=== PATIENT | male | born 1935 | race Caucasian/White ===

== ENCOUNTER 2017-02-13 18:00 | Emergency (ER) | payer OTHER, MEDICARE, MEDICAID ==
[~2017-02-13] VITALS: Ht 175.3 cm; Wt 72.6 kg
--- NOTE | 2017-02-13 18:09 | ED General ---
General Stated Complaint: SHIVERING Exam Limitations: No Limitations History of Present Illness Time Seen by Provider: 18:07 Initial Comments To ER with reports of shivering. Temperature is 103.4 upon arrival to ER with a heart rate of 140. He arrives per EMS from [facility] in [place]. Primary care is [facility]. He is currently on hospice for colon cancer. He is with [facility] and the hospice nurse is present as are his 2 adult children. Adult son states that he is still a full code and "will do whatever we have to do to get him going". Patient has colon cancer which she has not sought treatment for at the advice of his physician who stated he wouldn 't make it through colon cancer treatment. Timing/Duration: 1-2 Days Severity: Moderate Associated Systoms: Fever/Chills Allergies and Home Medications Allergies Coded Allergies: No Known Drug Allergies (Unverified , 02/13/17) Home Medications Unable to Obtain Active Prescriptions or Reported Meds Constitutional: see HPI EENTM: see HPI Respiratory: no symptoms reported Cardiovascular: no symptoms reported Genitourinary: no symptoms reported Musculoskeletal: no symptoms reported Skin: no symptoms reported Psychiatric/Neurological: No Symptoms Reported Hematologic/Lymphatic: No Symptoms Reported Immunological/Allergic: no symptoms reported Past Qdyoafn-Wodtit-Xsurkz Hx Patient Social History Recent Foreign Travel: No Contact w/Someone Who Travel: No Physical Exam Vital Signs Vital Sign - Last 12Hours 02/13/17 02/13/17 18:05 22:02 Temp 103.4 Pulse 130 Resp 26 B/P (MAP) 119/80 Pulse Ox 96 O2 Delivery Room Air O2 Flow Rate 2.00 Capillary Refill : General Appearance: WD/WN, Chronically ill, Moderate Distress, Other (cachectic ) Eyes: Bilateral Eye EOMI, Bilateral Eye Normal Inspection, Bilateral Eye PERRL HEENT: PERRL/EOMI, TMs Normal Neck: Full Range of Motion, Normal Inspection Respiratory: Normal Breath Sounds, No Accessory Muscle Use, No Respiratory Distress Cardiovascular: Normal Peripheral Pulses, Tachycardia Gastrointestinal: Non Tender, Soft Extremity: Normal Capillary Refill, Normal Inspection Neurologic/Psychiatric: Other (moans and mumbles incoherently but no meaningful verbal response. Does not open his eyes.) Skin: Normal Color, Warm/Dry Focused Exam Lactic Acid Level Progress/Results/Core Measures Results/Orders Lab Results My Orders Orders - TAVO SANTOYO APRN Iv Infusion <= First Hr Ed (02/13/17 ) Medications Given in ED Vital Signs/I&O Diagnostic Imaging Diagonstic Imaging: Xray Comments NAME: KIKE CASTELLANO REC#: [id number] PT STATUS: REG ER : 1935 PHYSICIAN: TAVO SANTOYO APRN ADMIT DATE: 02/13/17/ER Draft Date of Exam:02/13/17 CHEST 1 VIEW, AP/PA ONLY INDICATION: Fever. EXAMINATION: Portable chest was obtained. FINDINGS: Normal heart size and vascularity. The lungs are clear. There is no effusion or pneumothorax. There are changes of prior median sternotomy. There are degenerative changes of the right shoulder joint. IMPRESSION: No acute abnormality is seen. Dictated on workstation # [id number] Dict: 02/13/171837 Trans: 02/13/171854 [facility] [id number] Interpreted by: JAYA CASH MD Electronically signed by: NAME: KIKE CASTELLANO REC#: [id number] PT STATUS: REG ER : 1935 PHYSICIAN: TAVO SANTOYO APRN ADMIT DATE: 02/13/17/ER Draft Date of Exam:02/13/17 CT ABDOMEN/PELVIS WO PROCEDURE: CT abdomen and pelvis without contrast. TECHNIQUE: Multiple contiguous axial images were obtained through the abdomen and pelvis without the use of intravenous contrast. INDICATION: Fever. Pain. FINDINGS: The lung bases are clear. The gallbladder is absent. The liver and bile ducts are normal. The spleen is mildly prominent. The pancreas and adrenals are normal. The kidneys, ureters and bladder are normal. There is an abnormal appearance to the ascending colon just proximal to the hepatic flexure with circumferential thickening and pericolonic edema. This was likely due to focal inflammation and diverticulitis but neoplasm needs to be excluded. There is no obstruction or perforation at this time. There is no abscess present. There is no adenopathy. IMPRESSION: There is an abnormal appearance to the ascending colon which may be secondary to an inflammatory or neoplastic process. Recommend followup for clearing and/or endoscopy for further evaluation. Dictated on workstation # [id number] Dict: 02/13/172002 Trans: 02/13/172006 [facility] [id number] Interpreted by: JAYA CASH MD Electronically signed by: Departure Communication Progress Notes 1817-I did discuss with the patient's adult son that we should reconsider the full CODE STATUS. He states "no, that's what he said he wanted and I followed by mother's wishes when she passed and I'll follow his too". I did discuss with him the violent nature of CPR and the futility of this but he insists on continuing full CODE STATUS. 2021- I did discuss the case with Dr. Nettles. She feels she would be unable to provide this gentleman with care he needs given the aggressive treatment the family would like to pursue. I will discuss treatment plan with family. 2024- family will be revoking hospice ([facility]) and would like the patient transferred to [facility]. 2039-Dr. Anderson was most gracious and accepted the patient to the hospitalist service. ABG is pending. Patient has had 2 L of IV fluids, 4.5 g IV Zosyn. Heart rate down to 100 sinus, temperature down to 101, blood pressure 99/60. Impression Impression: Primary Impression: Severe sepsis Additional Impression: Colon cancer Disposition: 02 XFER SHT-TRM HOSP Condition: Critical Decision to Admit Reason: Admit from ER (General) Decision to Admit/Date: Feb 13, 2017 Time/Decision to Admit Time: 19:10 Departure-Patient Inst. Referrals: NO,LOCAL PHYSICIAN (PCP/Family) Primary Care Physician Scripts Unable to Obtain Active Prescriptions or Reported Meds TAVO SANTOYO APRN Feb 13, 2017 18:09
[2017-02-13] MEDS ORDERED: ACETAMINOPHEN 500 MG TAB (TYLENOL) PO ONE (18:15)
[2017-02-13] MEDS ORDERED: NS IV 1000 ML 1,000 ML IV SCH ×2 (18:15→19:00)
[2017-02-13 18:30] LABS: BASOPHILS % (AUTO) 0 % (0-10); EOSINOPHILS % (AUTO) 0 % (0-10); LYMPHOCYTES # (AUTO) 0.3 X 10^3 (1.0-4.0); LYMPHOCYTES % (AUTO) 3 % (12-44); MEAN CORPUSCULAR HEMOGLOBIN 25 PG (25-34); MEAN CORPUSCULAR HGB CONC 33 G/DL (32-36); MEAN CORPUSCULAR VOLUME 77 FL (80-99); MEAN PLATELET VOLUME 10.5 FL (7.4-10.4); MONOCYTES # (AUTO) 0.6 X 10^3 (0.0-1.0); MONOCYTES % (AUTO) 6 % (0-12); NEUTROPHILS # (AUTO) 10.2 X 10^3 (1.8-7.8); NEUTROPHILS % (AUTO) 91 % (42-75); PLATELET COUNT 180 10^3/uL (130-400); RED BLOOD COUNT 5.41 10^6/uL (4.35-5.85); RED CELL DISTRIBUTION WIDTH 16.6 % (10.0-14.5); WHITE BLOOD COUNT 11.1 10^3/uL (4.3-11.0)
[2017-02-13 18:31] LABS: KETONES,URINE NEGATIVE (NEGATIVE); LEUKOCYTE ESTERASE ,URINE NEGATIVE (NEGATIVE); NITRITE,URINE NEGATIVE (NEGATIVE); PH,URINE 5 (5-9); PROTEIN,URINE 1+ (NEGATIVE); UROBILINOGEN,URINE NORMAL (NORMAL)
[2017-02-13 18:43] LABS: BILIRUBIN,URINE 1+ (NEGATIVE)
[2017-02-13 18:46] LABS: ALBUMIN 3.6 GM/DL (3.2-4.5); BILIRUBIN,TOTAL 1.3 MG/DL (0.1-1.0); CALCIUM 9.5 MG/DL (8.5-10.1); CREATININE SERUM 1.46 MG/DL (0.60-1.30); POTASSIUM 3.7 MMOL/L (3.6-5.0); TOTAL PROTEIN 7.6 GM/DL (6.4-8.2)
[2017-02-13 18:47] LABS: BAND NEUTROPHILS 10 %; BASOPHILS % (MANUAL) 1 %; EOSINOPHILS % (MANUAL) 0 %; LYMPHOCYTES % (MANUAL) 3 %; NEUTROPHILS % (MANUAL) 84 %
[2017-02-13] MEDS ORDERED: ACETAMINOPHEN 650 MG SUPP (TYLENOL) ONE (18:52)
--- NOTE | 2017-02-13 18:55 | Diagnostic Imaging Report ---
INDICATION: Fever. EXAMINATION: Portable chest was obtained. FINDINGS: Normal heart size and vascularity. The lungs are clear. There is no effusion or pneumothorax. There are changes of prior median sternotomy. There are degenerative changes of the right shoulder joint. IMPRESSION: No acute abnormality is seen. Dictated by: Dictated on workstation # [id number]
[2017-02-13] MEDS ORDERED: ACETAMINOPHEN 650 MG SUPP (TYLENOL) PR ONE (19:00)
[2017-02-13] MEDS ORDERED: NS (IVPB) 250 ML IV ONE (19:15)
[2017-02-13] MEDS ORDERED: PIPERACILLIN SODIUM/TAZOBACTAM 4.5 GM in NS (IVPB) 100 ML IV ONE (19:15)
--- NOTE | 2017-02-13 20:08 | Diagnostic Imaging Report ---
PROCEDURE: CT abdomen and pelvis without contrast. TECHNIQUE: Multiple contiguous axial images were obtained through the abdomen and pelvis without the use of intravenous contrast. INDICATION: Fever. Pain. FINDINGS: The lung bases are clear. The gallbladder is absent. The liver and bile ducts are normal. The spleen is mildly prominent. The pancreas and adrenals are normal. The kidneys, ureters and bladder are normal. There is an abnormal appearance to the ascending colon just proximal to the hepatic flexure with circumferential thickening and pericolonic edema. This was likely due to focal inflammation and diverticulitis but neoplasm needs to be excluded. There is no obstruction or perforation at this time. There is no abscess present. There is no adenopathy. IMPRESSION: There is an abnormal appearance to the ascending colon which may be secondary to an inflammatory or neoplastic process. Recommend followup for clearing and/or endoscopy for further evaluation. Dictated by: Dictated on workstation # [id number]
[2017-02-13 21:22] LABS: ABG HCO3 25 MMOL/L (23-27); ABG OXYGEN SATURATION 91 % (94-100); ABG PCO2 43 MMHG (35-45); ABG PH 7.39 (7.37-7.43); ABG PO2 55 MMHG (79-93); ABG TCO2 26.6 MMOL/L (21.0-31.0); ALLENS TEST YES-POS
[2017-02-13] MEDS ORDERED: NS IV 1000 ML 1,000 ML ONE (21:56)
[2017-02-13 22:02] VITALS: BP 110/59
== END 2017-02-13 22:02 | disposition short-term general hospital (02) ==
LOC: ER 18:03
DX: A41.9 Sepsis, unspecified organism (principal); R65.20 Severe sepsis without septic shock; C18.9 Malignant neoplasm of colon, unspecified
CPT/HCPCS: 36415; 71010; 74176; 80053; 81000; 82805; 83605; 85007; 85025; 85027; 87040; 96365; 99285

== ENCOUNTER 2017-03-29 03:34 | Inpatient (IN) | payer MEDICARE, MEDICAID ==
[2017-03-29] VITALS (15 sets, daily range): BP systolic 92–122; BP diastolic 46–65
[~2017-03-29] VITALS: Ht 170.2 cm; Wt 67.6 kg
[2017-03-29] MEDS ORDERED: NS IV 1000 ML 1,000 ML IV ONE ×2 (03:47→04:38)
--- NOTE | 2017-03-29 03:56 | ED Respiratory ---
General Stated Complaint: COUGHING UP YELLOW PHLEGM Source: patient, EMS, [facility] Exam Limitations: clinical condition History of Present Illness Time seen by provider: 03:45 Initial Comments Patient presents to ER by EMS with a chief complaint of needing to be suctioned multiple times and a lot of coughing. The patient is a resident of [facility] for the past 2 days where he just got there after a 2 week stay in the ICU and hospital at [place], [place] where he was intubated for a time for respiratory issues. Apparently he was on hospice prior to that but was rescinded for inpatient care. He is not on hospice now and is full code. The patient gives no history. He has a feeding tube, Dey catheter and multiple wounds that are dressed as well as a fentanyl patch on the front of his chest per EMS. No IV fluids were started since he was just brought across the road. Allergies and Home Medications Allergies Coded Allergies: No Known Drug Allergies (Unverified , 02/13/17) Home Medications Amlodipine Besylate 5 Mg Tablet, (Reported) Citalopram Hydrobromide 20 Mg Tablet, (Reported) Fentanyl 1 Each Patch.td72, (Reported) Hydrocodone/Acetaminophen 1 Each Tablet, (Reported) Levothyroxine Sodium 175 Mcg Tablet, (Reported) Metoprolol Tartrate 25 Mg Tablet, 25 MG PO BID, (Reported) Ondansetron 4 Mg Tab.rapdis, (Reported) Ranitidine HCl 150 Mg Tablet, (Reported) Rosuvastatin Calcium 40 Mg Tablet, (Reported) Constitutional: see HPI (patient is obtunded and unable to give any meaningful review of systems or answer questions.) Physical Exam Vital Signs Vital Sign - Last 12Hours 03/29/17 03:34 Temp 98.1 Pulse 97 Resp 15 B/P (MAP) 129/79 Pulse Ox 92 O2 Delivery Room Air Capillary Refill : General Appearance: mild distress, cachetic Eyes: Bilateral Eye Normal Inspection, Bilateral Eye PERRL (2 mm bilateral with only scant reaction to light.), Bilateral Eye EOMI HEENT: other (extremely dry mucous membranes with thick phlegm in the back of his oropharynx. Ear canals are clear with mucoid effusions and some retraction.) Neck: non-tender, limited range of motion Respiratory: chest non-tender, lungs clear, no respiratory distress, no accessory muscle use, other (pectus excavatum) Cardiovascular: normal peripheral pulses, regular rate, rhythm, other (left arm edema) Gastrointestinal: normal bowel sounds, non tender, soft Extremities: non-tender, no calf tenderness Neurologic/Psychiatric: alert, aphasia, disoriented x 3, other (bedbound) Skin: other (multiple dressed pressure ulcers and maceration of the back along the spine. Stage I pressure ulcer from thoracic spine down to sacrum with dressings. Dressings on scrotum, ischial tuberosities, heels) Focused Exam Evaluation Lactate Level Laboratory Tests 03/29/17 03:50: Lactic Acid Level 2.93*H Lactic Acid Level Laboratory Tests Test 03/29/17 03:50 Lactic Acid Level 2.93 MMOL/L (0.50-2.00) *H Progress/Results/Core Measures Results/Orders Lab Results Laboratory Tests Test 03/29/17 03:50 03/29/17 03:56 Range/Units White Blood Count 6.8 4.3-11.0 10^3/uL Red Blood Count 3.58 L 4.35-5.85 10^6/uL Hemoglobin 9.8 L 13.3-17.7 G/DL Hematocrit 32 L 40-54 % Mean Corpuscular Volume 88 80-99 FL Mean Corpuscular Hemoglobin 27 25-34 PG Mean Corpuscular Hemoglobin Concent 31 L 32-36 G/DL Red Cell Distribution Width 23.2 H 10.0-14.5 % Platelet Count 103 L 130-400 10^3/uL Mean Platelet Volume 12.4 H 7.4-10.4 FL Neutrophils (%) (Auto) 79 H 42-75 % Lymphocytes (%) (Auto) 14 12-44 % Monocytes (%) (Auto) 5 0-12 % Eosinophils (%) (Auto) 2 0-10 % Basophils (%) (Auto) 0 0-10 % Neutrophils # (Auto) 5.4 1.8-7.8 X 10^3 Lymphocytes # (Auto) 1.0 1.0-4.0 X 10^3 Monocytes # (Auto) 0.4 0.0-1.0 X 10^3 Eosinophils # (Auto) 0.1 0.0-0.3 10^3/uL Basophils # (Auto) 0.0 0.0-0.1 10^3/uL Prothrombin Time 14.4 12.2-14.7 SEC INR Comment 1.1 0.8-1.4 Activated Partial Thromboplast Time 28 24-35 SEC Sodium Level 148 H 135-145 MMOL/L Potassium Level 4.1 3.6-5.0 MMOL/L Chloride Level 111 H 98-107 MMOL/L Carbon Dioxide Level 23 21-32 MMOL/L Anion Gap 14 5-14 MMOL/L Blood Urea Nitrogen 44 H 7-18 MG/DL Creatinine 1.13 0.60-1.30 MG/DL Estimat Glomerular Filtration Rate > 60 BUN/Creatinine Ratio 39 Glucose Level 203 H 70-105 MG/DL Lactic Acid Level 2.93 *H 0.50-2.00 MMOL/L Calcium Level 8.7 8.5-10.1 MG/DL Phosphorus Level 3.2 2.3-4.7 MG/DL Magnesium Level 2.2 1.8-2.4 MG/DL Total Bilirubin 1.0 0.1-1.0 MG/DL Aspartate Amino Transf (AST/SGOT) 128 H 5-34 U/L Alanine Aminotransferase (ALT/SGPT) 101 H 0-55 U/L Alkaline Phosphatase 416 H 40-136 U/L Troponin I 1.04 *H <0.30 NG/ML Total Protein 6.3 L 6.4-8.2 GM/DL Albumin 3.1 L 3.2-4.5 GM/DL Urine Color YELLOW Urine Clarity VERY CLOUDY H Urine pH 9 5-9 Urine Specific [place] 1.015 L 1.016-1.022 Urine Protein 3+ H NEGATIVE Urine Glucose (UA) NEGATIVE NEGATIVE Urine Ketones 1+ H NEGATIVE Urine Nitrite POSITIVE H NEGATIVE Urine Bilirubin NEGATIVE NEGATIVE Urine Urobilinogen 1 NORMAL MG/DL Urine Leukocyte Esterase 3+ H NEGATIVE Urine RBC (Auto) 5+ H NEGATIVE Urine RBC TNTC H /HPF Urine WBC TNTC H /HPF Urine Crystals PRESENT H /LPF Urine Triple Phosphate Crystals LARGE H /LPF Urine Amorphous Sediment LARGE GARRISON PHOSPHATE H /LPF Urine Bacteria MODERATE H /HPF Urine Casts NONE /LPF Urine Mucus NEGATIVE /LPF Urine Culture Indicated YES My Orders Orders - MAC RODRIGUEZ Cbc With Automated Diff (03/29/17 03:47) Comprehensive Metabolic Panel (03/29/17 03:47) Lactic Acid Analyzer (03/29/17 03:47) Magnesium (03/29/17 03:47) Troponin I (03/29/17 03:47) Phosphorus (03/29/17 03:47) Chest 1 View, Ap/Pa Only (03/29/17 03:47) Blood Culture (03/29/17 03:47) Sputum Culture (03/29/17 03:47) Ua Culture If Indicated (03/29/17 03:47) Protime With Inr (03/29/17 03:47) Partial Thromboplastin Time (03/29/17 03:47) O2 (03/29/17 03:47) Saline Lock/Iv-Start (03/29/17 03:47) Saline Lock/Iv-Start (03/29/17 03:47) Vital Signs Adult Sepsis Patie Q1HR (03/29/17 03:47) Remove Rings In Anticipation O (03/29/17 03:47) Saline Lock/Iv-Start (03/29/17 03:47) Ns Iv 1000 Ml (Sodium Chloride 0.9%) (03/29/17 03:47) Albuterol/Ipra Inhalation Soln (Duoneb I (03/29/17 04:00) Svn Sm Volume Nebulizer Rt-Rfs (03/29/17 03:58) Urine Culture (03/29/17 03:56) Continuous Ekg Monitoring (03/29/17 04:38) Ekg Tracing (03/29/17 04:38) Saline Lock/Iv-Start (03/29/17 04:38) Ns Iv 1000 Ml (Sodium Chloride 0.9%) (03/29/17 04:38) Cefepime Injection (Maxipime Injection) (03/29/17 04:45) Aspirin Tablet (Aspirin Tablet) (03/29/17 05:00) Enoxaparin Injection (Lovenox Injection) (03/29/17 05:00) Metoprolol Tartrate Injection (Lopressor (03/29/17 05:00) Vancomycin Injection (Vancomycin Injecti (03/29/17 05:00) Medications Given in ED Current Medications Medications Dose Ordered Sig/Horacio Route Start Time Stop Time Status Last Admin Dose Admin Albuterol/ Ipratropium 3 ml ONCE ONCE INH 03/29/17 04:00 03/29/17 04:01 DC 03/29/17 04:10 3 ML Aspirin 325 mg ONCE ONCE GT 03/29/17 05:00 03/29/17 05:01 DC 03/29/17 05:24 325 MG Enoxaparin Sodium 70 mg ONCE ONCE SC 03/29/17 05:00 03/29/17 05:01 DC 03/29/17 05:27 70 MG Metoprolol Tartrate 2.5 mg ONCE ONCE IV 03/29/17 05:00 03/29/17 05:01 DC 03/29/17 05:29 2.5 MG Sodium Chloride 1,000 ml @ 0 mls/hr Q0M ONCE IV 03/29/17 03:47 03/29/17 03:53 DC 03/29/17 04:26 1,000 MLS/HR Sodium Chloride 1,000 ml @ 0 mls/hr Q0M ONCE IV 03/29/17 04:38 03/29/17 04:40 DC 03/29/17 05:34 1,000 MLS/HR Vital Signs/I&O Vital Sign - Last 12Hours 03/29/17 03/29/17 03:34 04:13 Temp 98.1 Pulse 97 Resp 15 B/P (MAP) 129/79 Pulse Ox 92 9 O2 Delivery Room Air Room Air Progress Note #1: Time: 03:56 Progress Note Patient has a very cachectic frail gentleman with phlegm produced upon cough. Along suctioning we got copious amounts of yellow phlegm. He is given a history per EMS that he is recently been in the hospital for pneumonia and is being treated with suctioning and breathing treatments but his med rec list from the halfway does not include any antibiotics at this time. He appears clinically dry. Progress Note #2: Time: 04:37 Progress Note Patient had a lot less upper airway sounds and rhonchus after he was deep suctioned. However after a breathing treatment his sounds are still diminished bilaterally. He looks very dry and he has an elevated lactate without any AK I. A lot of his labs are stable however his globe and has dropped off sharply in the last month by about 4 mg/dL. We'll go ahead and give him 30 mL/kg of fluids which would be 2 L to start. Because of his copious thick. Looking secretions as well as his urinalysis that looks like it could be colonized secondary to the indwelling Dey catheter it would not be unreasonable to start antibiotics. His troponin is also elevated at 1.04. We'll obtain an EKG however he is not going to be a candidate for cardiac catheterization. 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 With his recent drop in hemoglobin he will be a risky to put him on blood thinners. As far as antibiotic choice the differential includes UTI versus pneumonia. His lack of white count is noted and could be due to immunosenescence. We will presumptively treat him for sepsis with vancomycin and cefepime Progress Note #3: Time: 05:19 Progress Note No family present to discuss the case with so we will go ahead and move forward with treating the patient for potential in STEMI, pneumonia, UTI, sepsis. We'll give him put inpatient with telemetry under the care of Dr. El and Dr. Hamilton. ECG Initial ECG Impression Date: Mar 29, 2017 Initial ECG Impression Time: 04:39 Initial ECG Rate: 98 Initial ECG Rhythm: A Fib/Flutter Initial ECG Intervals: QT (491) Initial ECG Impression: Atrial Fibrillation Comment No evidence of ST elevation or depression Diagnostic Imaging Diagonstic Imaging: Xray Plain Films/CT/US/NM/MRI: chest Comments No acute cardiopulmonary processes noted. Previous sternotomy wires in place. Calcifications of the aorta. Compared to x-ray from one month ago. Reviewed: Reviewed by Me Consults Consults : Consulting Physician: DANTE HAMILTON MD FACP FAC CCDS Consults Notes 0450: Discussed the case as well as the lab findings and recent hospitalization and imaging. Discussed the drop in hemoglobin. He feels at this time Lovenox 1 mg/kg and aspirin 325 per the PEG tube would be recommended. He would like to give a slightly higher dose of metoprolol and with the patient's already on and Lopressor 2.5 mg IV times one now. He is okay if the hospitalist taking over the case wants to hold off on Lovenox for fear of an acute bleed. Departure Communication (Admissions) Time/Spoke to Admitting Phy: 05:02 Communication Sienna: Discussed the history, presentation, exam, x-ray, labs, troponin and kidney function and lactate and plan to give fluids, cefepime, vancomycin, Lovenox, aspirin, Lopressor and consultation with Dr. Hamilton, weatherstrip machine operator. He is in agreement with this plan so far and will see the patient. Impression Impression: Primary Impression: Non-STEMI (non-ST elevated myocardial infarction) Additional Impressions: Sepsis Qualified Codes: A41.9 - Sepsis, unspecified organism Pneumonia Qualified Codes: J18.9 - Pneumonia, unspecified organism UTI (urinary tract infection) Qualified Codes: N30.01 - Acute cystitis with hematuria Colon cancer Qualified Codes: C18.9 - Malignant neoplasm of colon, unspecified Pressure ulcer Qualified Codes: L89.109 - Pressure ulcer of unspecified part of back, unspecified stage Atrial fibrillation and flutter Thrombocytopenia Acute hypernatremia Elevated transaminase level Hypoalbuminemia Disposition: ADMITTED INPATIENT Condition: Stable Admissions Decision to Admit Reason: Admit from ER (General) Decision to Admit/Date: Mar 29, 2017 Time/Decision to Admit Time: 05:19 Departure-Patient Inst. Referrals: NO,LOCAL PHYSICIAN (PCP/Family) Primary Care Physician Copy Copies To 1: MIGUEL PENN DO Copies To 2: DANTE HAMILTON MD FACP [facility]ACC [facility] MAC RODRIGUEZ Mar 29, 2017 03:56
[2017-03-29] MEDS ORDERED: RT-ALBUTEROL/IPRATROPIUM 3 ML (DUONEB) VIAL INH ONE (04:00)
[2017-03-29 04:04] LABS: BILIRUBIN,URINE NEGATIVE (NEGATIVE); KETONES,URINE 1+ (NEGATIVE); LEUKOCYTE ESTERASE ,URINE 3+ (NEGATIVE); NITRITE,URINE POSITIVE (NEGATIVE); PH,URINE 9 (5-9); PROTEIN,URINE 3+ (NEGATIVE); UROBILINOGEN,URINE 1 MG/DL (NORMAL)
[2017-03-29 04:06] LABS: BASOPHILS % (AUTO) 0 % (0-10); EOSINOPHILS # (AUTO) 0.1 10^3/uL (0.0-0.3); EOSINOPHILS % (AUTO) 2 % (0-10); LYMPHOCYTES % (AUTO) 14 % (12-44); MEAN CORPUSCULAR HEMOGLOBIN 27 PG (25-34); MEAN CORPUSCULAR HGB CONC 31 G/DL (32-36); MEAN CORPUSCULAR VOLUME 88 FL (80-99); MEAN PLATELET VOLUME 12.4 FL (7.4-10.4); MONOCYTES # (AUTO) 0.4 X 10^3 (0.0-1.0); MONOCYTES % (AUTO) 5 % (0-12); NEUTROPHILS # (AUTO) 5.4 X 10^3 (1.8-7.8); NEUTROPHILS % (AUTO) 79 % (42-75); PLATELET COUNT 103 10^3/uL (130-400); RED BLOOD COUNT 3.58 10^6/uL (4.35-5.85); RED CELL DISTRIBUTION WIDTH 23.2 % (10.0-14.5); WHITE BLOOD COUNT 6.8 10^3/uL (4.3-11.0)
[2017-03-29 04:11] LABS: TRIPLE PHOSPHATE CRYSTAL,UR LARGE /LPF; WBC,URINE TNTC /HPF
[2017-03-29 04:12] LABS: INR 1.1 (0.8-1.4); PROTHROMBIN TIME PATIENT 14.4 SEC (12.2-14.7)
[2017-03-29 04:23] LABS: ALANINE AMINOTRANSFERASE 101 U/L (0-55); ALBUMIN 3.1 GM/DL (3.2-4.5); ANION GAP 14 MMOL/L (5-14); ASPARTATE AMINO TRANSFERASE 128 U/L (5-34); BLOOD UREA NITROGEN 44 MG/DL (7-18); BUN/CREATININE RATIO 39; CALCIUM 8.7 MG/DL (8.5-10.1); CARBON DIOXIDE 23 MMOL/L (21-32); CHLORIDE 111 MMOL/L (98-107); CREATININE SERUM 1.13 MG/DL (0.60-1.30); GFR ESTIMATED > 60; GLUCOSE 203 MG/DL (70-105); MAGNESIUM 2.2 MG/DL (1.8-2.4); PHOSPHORUS 3.2 MG/DL (2.3-4.7); POTASSIUM 4.1 MMOL/L (3.6-5.0); SODIUM 148 MMOL/L (135-145); TOTAL PROTEIN 6.3 GM/DL (6.4-8.2)
[2017-03-29 04:36] LABS: TROPONIN I 1.04 NG/ML (<0.30)
[2017-03-29] MEDS ORDERED: CEFEPIME INJECTION 2,000 MG in NS (IVPB) 50 ML IV STA (04:45)
[2017-03-29] MEDS ORDERED: ASPIRIN 325 MG (5 GR) TABLET GT ONE (05:00)
[2017-03-29] MEDS ORDERED: meTOprolol 5 MG/5 ML (LOPRESSOR) VIAL IV ONE (05:00)
[2017-03-29] MEDS ORDERED: ENOXAPARIN 80 MG/0.8 ML (LOVENOX) SYR SC ONE (05:00)
[2017-03-29] MEDS ORDERED: VANCOMYCIN INJECTION 1,000 MG in NS (IVPB) 250 ML IV ONE (05:00)
[2017-03-29] MEDS ORDERED: ONDA4TAB11 PEG (05:18)
[2017-03-29] MEDS ORDERED: METO-333 PEG (05:18)
[2017-03-29] MEDS ORDERED: CITA20TA7 PEG (05:18)
[2017-03-29] MEDS ORDERED: LEVO175T5 PEG (05:18)
[2017-03-29] MEDS ORDERED: HYDR-3812 PEG (05:18)
[2017-03-29] MEDS ORDERED: ROSU40TA20 PEG (05:18)
[2017-03-29] MEDS ORDERED: RANI150T11 PEG (05:18)
[2017-03-29] MEDS ORDERED: AMLO5TAB2 PEG (05:18)
[2017-03-29] MEDS ORDERED: FENT1PAT9 TD (05:18)
--- OUTSIDE RECORDS SUMMARY | 2017-03-29 05:32 | XMS REPORT | CCD ---
Author Author MARIA ESTHER MCCLURE Organization Unknown Address [address] [facility] [address] [place], [place] [id number] Care Team Providers Care Wet Press Tender Name Role Phone ABRAMS, ERIC DO Attphys ABRAMS, ERIC DO Prisurg Vital Signs Unknown or Not Available. Allergies Allergy Code Allergy Type Reaction Status SHELLFISH 0 Food allergy Active Procedures Procedure Code Procedure Type Date CX CHEST [address] 10/12/2014 CULTURE URINE 390448617 SNOMED CT 10/12/2014 ^CBC W/AUTO DIFF 6380127 SNOMED CT 10/12/2014 URINALYSIS C&S IF IND 913420370 SNOMED CT 10/12/2014 COMPREHENSIVE METABOLIC PANEL 423477089 SNOMED CT 2014 CBC W/ AUTO DIFF (RFLX MAN DIFF IF IND) 6453698 SNOMED CT 10/12/2014 History of Immunizations Immunization Code Date influenza, split (incl. purified surface antigen) 15 06/05/1997 influenza, split (incl. purified surface antigen) 15 06/04/1999 influenza, split (incl. purified surface antigen) 15 04/25/2004 influenza, split (incl. purified surface antigen) 15 05/15/2005 Problems Problem Code Start Date Resolved Date Status PYELONEPHRITIS, ACUTE 33799313 07/27/2011 Active FRACTURE OF RIBS, TWO 9826104 07/27/2011 Active ACUTE RIGHT FLANK PAIN 099234225 07/27/2011 Active FREQUENT FALLS 215292023 07/27/2011 Active Results COMPREHENSIVE METABOLIC PANEL - Collect Date/Time: 10/12/2014 13:26 Test Name Code Test Result Test Units Test Ref Range GLUCOSE 2345-7 219 MG/DL L=70 H=100 SODIUM 2951-2 141 MEQ/L L=135 H=148 POTASSIUM 2823-3 3.4 MEQ/L L=3.5 H=5.3 CHLORIDE 2075-0 103 MEQ/L L=96 H=110 CO2 2028-9 27 MEQ/L L=22 H=29 BUN 3094-0 17 MG/DL L=8 H=22 CREATININE 2160-0 1.8 MG/DL L=0.6 H=1.6 SGOT/AST 1920-8 52 IU/L L=10 H=40 SGPT/ALT 1742-6 46 IU/L L=8 H=54 ALK PHOS 6768-6 207 IU/L L=35 H=115 TOTAL PROTEIN 2885-2 6.1 G/DL L=5.5 H=8.5 ALBUMIN 1751-7 3.7 G/DL L=3.1 H=5.4 TOTAL BILI 1975-2 2.0 MG/DL L=0.0 H=1.5 CALCIUM 30516-4 8.6 MG/DL L=8.2 H=10.6 AGE 78 yrs GFR NonAA 37 GFR AA 45 eGFR 37 mL/min/1.7 eGFR AA* 45 mL/min/1.7 CBC W/ AUTO DIFF (RFLX MAN DIFF IF IND) - Collect Date/Time: 10/12/2014 13:26 Test Name Code Test Result Test Units Test Ref Range WBC 69325-0 4.3 TH/CMM L=4.5 H=10.8 RBC 789-8 4.48 ML/CMM L=4.70 H=6.10 HGB 718-7 13.4 G/DL L=14.0 H=18.0 HCT 4544-3 41.5 % L=42.0 H=52.0 MCV 93 FL L=81 H=99 MCH 29.9 PG L=27.0 H=33.0 MCHC 32.3 G/DL L=31.0 H=36.0 RDW SD 58 FL L=36 H=50 RDW CV 16.9 % L=0.0 H=14.8 MPV 11.2 FL L=9.3 H=12.5 PLT 777-3 64 TH/CMM L=130 H=440 NRBC# 0.00 TH/CMM L=0.00 H=0.00 NRBC% 0.0 /100WBC L=0.0 H=2.0 %NEUT 77.4 % %LYMP 16.8 % %MONO 3.5 % %EOS 2.1 % %BASO 0.2 % #NEUT 3.31 TH/CMM L=2.10 H=8.20 #LYMP 0.72 TH/CMM L=0.90 H=5.20 #MONO 0.15 TH/CMM L=0.16 H=1.00 #EOS 0.09 TH/CMM L=0.00 H=0.80 #BASO 0.01 TH/CMM L=0.00 H=0.20 PLTS PLTS CHECKD N/A MANUAL DIFF NOT IND N/A URINALYSIS C&S IF IND - Collect Date/Time: 10/12/2014 14:00 Test Name Code Test Result Test Units Test Ref Range COLOR YELLOW N/A NL: YELLOW APPEARANCE CLEAR N/A NL: CLEAR SPEC GRAV >=1.030 N/A NL: 1.002 - 1.022 pH 5.5 N/A NL: 5 - 9 PROTEIN TRACE N/A NL: NEGATIVE mg/dl GLUCOSE NEGATIVE N/A NL: NEGATIVE mg/dl KETONE NEGATIVE N/A NL: NEGATIVE mg/dl BILIRUBIN NEGATIVE N/A NL: NEGATIVE BLOOD NEGATIVE N/A NL: NEGATIVE NITRITE NEGATIVE N/A NL: NEGATIVE LEUK SCREEN TRACE N/A NL: NEGATIVE WBC/HPF 5-10 N/A NL: NEGATIVE RBC/HPF RARE N/A NL: NEGATIVE CASTS/LPF NEGATIVE N/A NL: NEGATIVE CRYSTALS NEGATIVE N/A NL: NEGATIVE MUCOUS THRDS FEW N/A NL: NEGATIVE BACTERIA FEW N/A NL: NEGATIVE EPITH CELLS FEW SQUAMOUS N/A NL: NEGATIVE TRICHOMONAS NEGATIVE N/A NL: NEGATIVE YEAST NEGATIVE N/A NL: NEGATIVE CULT SET UP? YES N/A Active Medications Unknown or Not Available. Medications Administered During Visit Unknown or Not Available. Encounters Encounter Diagnosis Diagnosis Code Start Date OTHER PANCYTOPENIA 20365 10/12/2014 Social History Smoking Status Code Start Date End Date Never smoker [id number] Patient Decision Aids Unknown or Not Available. Discharge Instructions You were admitted to [facility] on 10/12/2014 with a principal diagnosis of OTHER PANCYTOPENIA. You were discharged from [facility] on 10/12/2014. Should you have any questions prior to discharge, please contact a member of your healthcare team. If you have left the hospital and have any questions, please contact your primary care physician. Chief Complaint and Reason For Visit Chief Complaint Date of Onset GEN WEAKNESS Function Status Unknown or Not Available. Referral/Transition of Care Unknown or Not Available.
--- NOTE | 2017-03-29 06:19 | Diagnostic Imaging Report ---
INDICATION: Congestion. COMPARISON: 02/13/2017. FINDINGS: Development of small left pleural effusion and left basilar pulmonary opacities. No pneumothorax. Cardiomegaly with changes of CABG. Right lung is clear. IMPRESSION: 1. Development of small left pleural effusion and left basilar opacities which could relate to pneumonia, aspiration or other inflammatory process depending on the clinical scenario. Dictated by: Dictated on workstation # [id number]
[2017-03-29] MEDS ORDERED: fentaNYL PATCH 50 MCG (DURAGESIC) TOP SCH (06:30)
[2017-03-29] MEDS ORDERED: PATCH REMOVAL TP SCH (06:30)
[2017-03-29] MEDS ORDERED: NITROGLYCERIN 0.4 MG SL TABS BTL 25'S SL PRN (06:45)
[2017-03-29] MEDS: NS IV 1000 ML 1,000 ML IV SCH ×3 (06:55→18:09)
--- NOTE | 2017-03-29 07:11 | History & Physicial (CHS) ---
HPI History of Present Illness: 81-year-old male presents by EMS to [facility] emergency department from the [facility] after resident was found to be with requiring respiratory suctioning and a lot of coughing. Patient was at the intensive care unit at [facility] in [facility] and he had been intubated. He does have colon cancer but the extent is not known. Currently he is with pneumonia as well as urinary tract infection. His blood work is suggestive for sepsis. He currently is not responding other than perhaps moving head when spoken to loudly. He does have an indwelling Dey catheter as well as a feeding tube. He is not a DNR and apparently the family wants everything done for him, as according to the patient. The second son was spoken to and he reports there is no power of finance attorney. Source: family, EMS, other (custodial providers) Exam Limitations: clinical condition Date seen by provider: Mar 29, 2017 Time Seen by Provider: 07:30 Attending Physician Ryan Mcdonnell MD PCP Ridge Ontiveros MD Consult DANTE CHAN MD FACP FACC CCDS Date of Admission Mar 29, 2017 at 05:10 Home Medications Home Medications Reviewed patient Home Medication Reconciliation Form Allergies Coded Allergies: No Known Drug Allergies (Unverified , 02/13/17) GIL-Mnviur-Qwyjlo Hx Patient Social History Alcohol Use: Denies Use Recreational Drug Use: No Smoking Status: Unknown if Ever Smoked Recent Foreign Travel: No Contact w/other who traveled: No Recent Hopitalizations: Yes ([facility] ADMISSION) Recent Infectious Disease Expo: No Review of Systems (CHC) Constitutional: see HPI Reviewed Test Results Reviewed Test Results Lab Laboratory Tests Test 03/29/17 03:50 03/29/17 03:56 03/29/17 06:20 Range/Units White Blood Count 6.8 4.3-11.0 10^3/uL Red Blood Count 3.58 L 4.35-5.85 10^6/uL Hemoglobin 9.8 L 13.3-17.7 G/DL Hematocrit 32 L 40-54 % Mean Corpuscular Volume 88 80-99 FL Mean Corpuscular Hemoglobin 27 25-34 PG Mean Corpuscular Hemoglobin Concent 31 L 32-36 G/DL Red Cell Distribution Width 23.2 H 10.0-14.5 % Platelet Count 103 L 130-400 10^3/uL Mean Platelet Volume 12.4 H 7.4-10.4 FL Neutrophils (%) (Auto) 79 H 42-75 % Lymphocytes (%) (Auto) 14 12-44 % Monocytes (%) (Auto) 5 0-12 % Eosinophils (%) (Auto) 2 0-10 % Basophils (%) (Auto) 0 0-10 % Neutrophils # (Auto) 5.4 1.8-7.8 X 10^3 Lymphocytes # (Auto) 1.0 1.0-4.0 X 10^3 Monocytes # (Auto) 0.4 0.0-1.0 X 10^3 Eosinophils # (Auto) 0.1 0.0-0.3 10^3/uL Basophils # (Auto) 0.0 0.0-0.1 10^3/uL Prothrombin Time 14.4 12.2-14.7 SEC INR Comment 1.1 0.8-1.4 Activated Partial Thromboplast Time 28 24-35 SEC Sodium Level 148 H 135-145 MMOL/L Potassium Level 4.1 3.6-5.0 MMOL/L Chloride Level 111 H 98-107 MMOL/L Carbon Dioxide Level 23 21-32 MMOL/L Anion Gap 14 5-14 MMOL/L Blood Urea Nitrogen 44 H 7-18 MG/DL Creatinine 1.13 0.60-1.30 MG/DL Estimat Glomerular Filtration Rate > 60 BUN/Creatinine Ratio 39 Glucose Level 203 H 70-105 MG/DL Lactic Acid Level 2.93 *H 3.06 *H 0.50-2.00 MMOL/L Calcium Level 8.7 8.5-10.1 MG/DL Phosphorus Level 3.2 2.3-4.7 MG/DL Magnesium Level 2.2 1.8-2.4 MG/DL Total Bilirubin 1.0 0.1-1.0 MG/DL Aspartate Amino Transf (AST/SGOT) 128 H 5-34 U/L Alanine Aminotransferase (ALT/SGPT) 101 H 0-55 U/L Alkaline Phosphatase 416 H 40-136 U/L Troponin I 1.04 *H <0.30 NG/ML Total Protein 6.3 L 6.4-8.2 GM/DL Albumin 3.1 L 3.2-4.5 GM/DL Urine Color YELLOW Urine Clarity VERY CLOUDY H Urine pH 9 5-9 Urine Specific [place] 1.015 L 1.016-1.022 Urine Protein 3+ H NEGATIVE Urine Glucose (UA) NEGATIVE NEGATIVE Urine Ketones 1+ H NEGATIVE Urine Nitrite POSITIVE H NEGATIVE Urine Bilirubin NEGATIVE NEGATIVE Urine Urobilinogen 1 NORMAL MG/DL Urine Leukocyte Esterase 3+ H NEGATIVE Urine RBC (Auto) 5+ H NEGATIVE Urine RBC TNTC H /HPF Urine WBC TNTC H /HPF Urine Crystals PRESENT H /LPF Urine Triple Phosphate Crystals LARGE H /LPF Urine Amorphous Sediment LARGE GARRISON PHOSPHATE H /LPF Urine Bacteria MODERATE H /HPF Urine Casts NONE /LPF Urine Mucus NEGATIVE /LPF Urine Culture Indicated YES Radiology NAME: KIKE [facility]LLANO [facility] REC#: [id number] PT STATUS: ADM IN : 1935 PHYSICIAN: MAC RODRIGUEZ MD ADMIT DATE: 03/29/17 Draft Date of Exam:03/29/17 CHEST 1 VIEW, AP/PA ONLY INDICATION: Congestion. COMPARISON: 02/13/2017. FINDINGS: Development of small left pleural effusion and left basilar pulmonary opacities. No pneumothorax. Cardiomegaly with changes of CABG. Right lung is clear. IMPRESSION: 1. Development of small left pleural effusion and left basilar opacities which could relate to pneumonia, aspiration or other inflammatory process depending on the clinical scenario. Dictated on workstation # [id number] Dict: 03/29/17 0611 Trans: 03/29/17 0618 NOA [id number] Interpreted by: VAISHALI BUTT MD Electronically signed by: Physical Exam-([facility]) Physical Exam Vital Signs VS - Last 72 Hours, by Label 03/29/17 03/29/17 03/29/17 03/29/17 03:34 04:13 06:00 06:05 Temp 98.1 Pulse 97 86 Resp 15 14 B/P (MAP) 129/79 Pulse Ox 92 9 99 98 O2 Delivery Room Air Room Air Room Air 03/29/17 06:26 Temp 96.9 Pulse 74 Resp 10 B/P (MAP) 119/65 Pulse Ox 97 O2 Delivery Room Air Capillary Refill : Less Than 3 Seconds General Appearance: no apparent distress HEENT: other (Dry mucous membranes) Respiratory: crackles Cardiovascular: regular rate, rhythm Gastrointestinal: soft Rectal: deferred Extremities: other (Edema of the left arm with extravasated blood markings) Assessment/Plan Assessment/Plan Admission Dx 1. Sepsis 2. Pneumonia 3. Elevated troponin 4. Possible urinary tract infection but indwelling catheter Plan 1. Sepsis -Patient is noted to have lactic acid on admission of 2.93. -We'll continue with IV fluid hydration currently at 100 mL/h. He did receive bolus in the ED at 2 L. -We will continue to monitor lactic acid until trending downward. -I spoke with his second son at length today regarding DNR status. The son reports to me that this has been discussed multiple times over the past few months and they do not want to make him DNR at the patient's request. Currently the patient is not able to speak and son does not want to change his decision. 2. Pneumonia -Patient is taking vancomycin as well as cefepime 3. Elevated troponin -Cardiology consultation 4. Possible urinary tract infection but indwelling catheter -At this time is covered with antibiotics for the pneumonia for the urinary tract infection. -Urine culture pending. Diagnosis/Problems: RYAN MCDONNELL MD Mar 29, 2017 07:11
[2017-03-29 07:18] LABS: CHOLESTEROL 68 MG/DL (< 200); DIRECT LDL 36 MG/DL (1-129); TRIGLYCERIDES 66 MG/DL (<150); VLDL CHOLESTEROL 13 MG/DL (5-40)
[2017-03-29] MEDS ORDERED: VANCOMYCIN 500 MG/NS 100 ML IVPB IV NR ×2 (07:58)
[2017-03-29] MEDS ORDERED: ASPIRIN E.C. 325 MG (ECOTRIN) TABLET PO SCH (09:00)
[2017-03-29] MEDS: meTOprolol TARTRATE 25 MG (LOPRESSOR) TABLET PEG SCH ×2 (09:33→21:04)
[2017-03-29] MEDS: ASPIRIN 81 MG CHEW (CHILDREN'S ASA) PO SCH (09:34)
[2017-03-29] MEDS: lisINopril 5 MG (PRINIVIL) TABLET PEG SCH (09:34)
[2017-03-29] MEDS ORDERED: RT-ALBUTEROL SULF 2.5 MG/3 ML PRE-MIX VIAL IH PRN (11:15)
[2017-03-29] MEDS ORDERED: FURO40TA4 PEG (14:08)
[2017-03-29] MEDS ORDERED: PEDI50DR6 PO (14:08)
[2017-03-29] MEDS ORDERED: LACT-72 PO (14:08)
[2017-03-29] MEDS ORDERED: SENN1TAB33 PO (14:08)
[2017-03-29] MEDS ORDERED: MAGN400O7 PEG (14:08)
[2017-03-29] MEDS ORDERED: POLY255P PEG (14:08)
[2017-03-29] MEDS ORDERED: ASPI-999 PEG (14:08)
[2017-03-29] MEDS ORDERED: LACT1CAP39 PEG (14:08)
[2017-03-29] MEDS ORDERED: CYAN10006 PEG (14:08)
--- NOTE | 2017-03-29 14:58 | Consultation-Cardiology ---
HPI-Cardiology Cardiology Consultation: Date of Consultation 03/29/17 Time Seen by Provider: 13:50 Date of Admission 03/29/17 Attending Physician Ryan El MD Admitting Physician Ridge Ontiveros MD Consulting Physician DANTE CHAN MD, MA, FACP, FACC, FSCAI, CCDS HPI: Chief Complaint: Reason for consultation: Elevated troponin HPI: 81 yo man who has multiple medical issues (as noted below) who has been admitted to Dr El's this am after he was transferred from his NH with signs of bronchial congestion (coughing and need for frequent suctioning). He has been diagnosed with pneumonia and sepsis and is being treated for that. Also had troponin elevation at presentation and some question of atrial fib at presentation and we have been asked to see him in card consult He is verbally unresponsive and not able to provide any history He was recently discharged from a [facility] with a long hospitalization for pneumonia, according to his records Review of Systems-Cardiology Review of Systems Constitutional: other (He is verbally unresponsive and not able to provide any history or review of systems) DLL-Fudcuc-Knrzqi Hx Patient Social History Alcohol Use: Denies Use Recreational Drug Use: No Smoking Status: Former Smoker Type Used: Cigarettes Recent Foreign Travel: No Recent Infectious Disease Expo: No Hospitalization with Isolation: Denies Physical Abuse Screen: No Sexual Abuse: No Past Medical History PMH As described under Assessment. Family Medical History Family Medical History: Patient's family history is not known at the time of this note Allergies and Home Medications Allergies Coded Allergies: No Known Drug Allergies (Unverified , 02/13/17) Home Medications Amlodipine Besylate 5 Mg Tablet, 5 MG PEG DAILY, (Reported) Aspirin 81 Mg Tab.chew, 81 MG PEG DAILY, (Reported) Citalopram Hydrobromide 20 Mg Tablet, 20 MG PEG HS, (Reported) Cyanocobalamin (Vitamin B-12) 1,000 Mcg Tablet, 1,000 MCG PEG DAILY, (Reported) Fentanyl 1 Each Patch.td72, 50 MCG TD EVERY 72 HOURS, (Reported) Furosemide 40 Mg Tablet, 40 MG PEG DAILY, (Reported) Hydrocodone/Acetaminophen 1 Each Tablet, 1 TAB PEG Q6H PRN for PAIN-MODERATE, ( Reported) Lactobacillus Rhamnosus GG 1 Each Capsule, 1 CAP PEG BID, (Reported) Lactose-Reduced Food/Fiber 237 Ml Liquid, 60 ML PO CONTINUOUS, (Reported) Levothyroxine Sodium 175 Mcg Tablet, 175 MCG PEG DAILY, (Reported) Magnesium Hydroxide 400 Mg/5 Ml Oral.susp, 30 ML PEG DAILY PRN for CONSTIPATION- 7TH LINE, (Reported) Metoprolol Tartrate 25 Mg Tablet, 25 MG PEG BID, (Reported) Ondansetron 4 Mg Tab.rapdis, 4 MG PEG Q8H PRN for NAUSEA/VOMITING-1ST LINE, ( Reported) Pediatric Multivit Comb No.81 50 Ml Drops, 2 ML PO DAILY, (Reported) Polyethylene Glycol 3350 255 Gm Powder, 17 GM PEG DAILY, (Reported) Ranitidine HCl 150 Mg Tablet, 150 MG PEG BID, (Reported) Rosuvastatin Calcium 40 Mg Tablet, 40 MG PEG HS, (Reported) Sennosides/Docusate Sodium 1 Each Tablet, 1 TAB PO DAILY, (Reported) Physical Exam-Cardiology Physical Exam Vital Signs/I&O Vital Sign - Last 12Hours 03/29/17 03/29/17 03/29/17 03/29/17 03:34 04:13 06:00 06:05 Temp 98.1 Pulse 97 86 Resp 15 14 B/P (MAP) 129/79 Pulse Ox 92 9 99 98 O2 Delivery Room Air Room Air Room Air 03/29/17 03/29/17 03/29/17 03/29/17 06:26 07:00 08:00 11:00 Temp 96.9 97.9 97.1 Pulse 74 69 68 Resp 10 8 12 B/P (MAP) 119/65 116/58 118/60 Pulse Ox 97 91 91 100 O2 Delivery Room Air Room Air Room Air 03/29/17 03/29/17 11:11 12:09 Temp 97.6 Pulse 69 65 Resp 12 B/P (MAP) 121/61 Pulse Ox 91 98 O2 Delivery Room Air Capillary Refill : Less Than 3 Seconds Constitutional: other (Unresponsive, cachetic, in no obvious distress) HEENT: PERRL, other (edentulous jaws) Neck: carotid pulses are 2 + bilaterally, with good upstrokes Respiratory: No accessory muscle use, other (fair to good bilat air entry; diminished at the bases) Cardiovascular: regular rate-rhythm, S1 and S2, systolic murmur (faint ALLI at cardiac base) Gastrointestinal: soft, No guarding, No rebound, audible bowel sounds Extremities: No clubbing, No cyanosis, No significant edema Neurologic/Psychiatric: other (unresponsive and unable to cooperate with a neuro exam) Skin: No rash on exposed areas, No ulcerations on exposed areas Data Review Labs Laboratory Tests 03/29/17 03:50: White Blood Count 6.8, Red Blood Count 3.58L, Hemoglobin 9.8L, Hematocrit 32L, Mean Corpuscular Volume 88, Mean Corpuscular Hemoglobin 27, Mean Corpuscular Hemoglobin Concent 31L, Red Cell Distribution Width 23.2H, Platelet Count 103L, Mean Platelet Volume 12.4H, Neutrophils (%) (Auto) 79H, Lymphocytes (%) (Auto) 14, Monocytes (%) (Auto) 5, Eosinophils (%) (Auto) 2, Basophils (%) (Auto) 0, Neutrophils # (Auto) 5.4, Lymphocytes # (Auto) 1.0, Monocytes # (Auto) 0.4, Eosinophils # (Auto) 0.1, Basophils # (Auto) 0.0, Prothrombin Time 14.4, INR Comment 1.1, Activated Partial Thromboplast Time 28, Sodium Level 148H, Potassium Level 4.1, Chloride Level 111H, Carbon Dioxide Level 23, Anion Gap 14 , Blood Urea Nitrogen 44H, Creatinine 1.13, Estimat Glomerular Filtration Rate > 60, BUN/Creatinine Ratio 39, Glucose Level 203H, Lactic Acid Level 2.93*H, Calcium Level 8.7, Phosphorus Level 3.2, Magnesium Level 2.2, Total Bilirubin 1.0, Aspartate Amino Transf (AST/SGOT) 128H, Alanine Aminotransferase (ALT/SGPT ) 101H, Alkaline Phosphatase 416H, Troponin I 1.04*H, Total Protein 6.3L, Albumin 3.1L, Triglycerides Level 66, Cholesterol Level 68, LDL Cholesterol Direct 36, VLDL Cholesterol 13, HDL Cholesterol 26L 03/29/17 03:56: Urine Color YELLOW, Urine Clarity VERY CLOUDYH, Urine pH 9, Urine Specific [place] 1.015L, Urine Protein 3+H, Urine Glucose (UA) NEGATIVE, Urine Ketones 1+ H, Urine Nitrite POSITIVEH, Urine Bilirubin NEGATIVE, Urine Urobilinogen 1, Urine Leukocyte Esterase 3+H, Urine RBC (Auto) 5+H, Urine RBC TNTCH, Urine WBC TNTCH, Urine Crystals PRESENTH, Urine Triple Phosphate Crystals LARGEH, Urine Amorphous Sediment LARGE GARRISON PHOSPHATEH, Urine Bacteria MODERATEH, Urine Casts NONE, Urine Mucus NEGATIVE, Urine Culture Indicated YES 03/29/17 06:20: Lactic Acid Level 3.06*H 03/29/17 11:33: Troponin I 0.89*H Laboratory Tests 03/29/17 03:50 A/P-Cardiology Assessment/Admission Diagnosis Septicemia due to UTI and/or pneumonia Pneumonia, L-sided UTI Elevated troponin: due to sepsis or due to small NSTEMI Unresponsive status Cachexia Feeding tube in place Renal insufficiency, probably acute, probably due to dehydration (pre-renal azotemia) Discussion and Recomendations Treat for possible NSTEMI with bb, statin, aspirin, clopidogrel Not suitable for invasive cardiac management (risk of invasive management appears greater than benefit) Change Lovenox to DVT prophylaxis dose. Full dose was initiated at presentation because of question of a fib. I have reviewed that ECG and it appears to be sinus rhythm with baseline artifact. Subsequent tele strips and ECG also demonstrate NSR Clinical Quality Measures DVT/VTE Risk/Contraindication: Risk Factor Score Per Nursin RFS Level Per Nursing on Admit: 4+=Very High DANTE CHAN MD FACP FAC CCDS Mar 29, 2017 14:58
[2017-03-29] MEDS ORDERED: CLOPIDOGREL 75 MG (PLAVIX) TABLET PO NR (15:17)
[2017-03-29] MEDS ORDERED: ENOXAPARIN 80 MG/0.8 ML (LOVENOX) SYR SC SCH (17:00)
[2017-03-29] MEDS ORDERED: ATORVASTATIN 40 MG (LIPITOR) TABLET PO SCH (21:00)
[2017-03-30] VITALS (18 sets, daily range): BP systolic 109–141; BP diastolic 51–65
[2017-03-30] MEDS: NS IV 1000 ML 1,000 ML IV SCH ×2 (05:12→11:29)
[2017-03-30 07:12] LABS: BASOPHILS % (AUTO) 0 % (0-10); EOSINOPHILS # (AUTO) 0.1 10^3/uL (0.0-0.3); EOSINOPHILS % (AUTO) 3 % (0-10); LYMPHOCYTES # (AUTO) 0.7 X 10^3 (1.0-4.0); LYMPHOCYTES % (AUTO) 19 % (12-44); MEAN CORPUSCULAR HEMOGLOBIN 27 PG (25-34); MEAN CORPUSCULAR HGB CONC 30 G/DL (32-36); MEAN CORPUSCULAR VOLUME 90 FL (80-99); MEAN PLATELET VOLUME 13.2 FL (7.4-10.4); MONOCYTES # (AUTO) 0.2 X 10^3 (0.0-1.0); MONOCYTES % (AUTO) 6 % (0-12); NEUTROPHILS # (AUTO) 2.7 X 10^3 (1.8-7.8); NEUTROPHILS % (AUTO) 72 % (42-75); PLATELET COUNT 69 10^3/uL (130-400); RED BLOOD COUNT 3.02 10^6/uL (4.35-5.85); WHITE BLOOD COUNT 3.8 10^3/uL (4.3-11.0)
[2017-03-30 07:33] LABS: ALANINE AMINOTRANSFERASE 127 U/L (0-55); ALBUMIN 2.7 GM/DL (3.2-4.5); ANION GAP 9 MMOL/L (5-14); ASPARTATE AMINO TRANSFERASE 148 U/L (5-34); BILIRUBIN,TOTAL 0.8 MG/DL (0.1-1.0); BLOOD UREA NITROGEN 39 MG/DL (7-18); BUN/CREATININE RATIO 37; CALCIUM 7.7 MG/DL (8.5-10.1); CARBON DIOXIDE 22 MMOL/L (21-32); CHLORIDE 118 MMOL/L (98-107); CREATININE SERUM 1.05 MG/DL (0.60-1.30); GFR ESTIMATED > 60; GLUCOSE 168 MG/DL (70-105); POTASSIUM 3.6 MMOL/L (3.6-5.0); SODIUM 149 MMOL/L (135-145); TOTAL PROTEIN 5.6 GM/DL (6.4-8.2)
[2017-03-30] MEDS ORDERED: VANCOMYCIN 1 GM/NS 250 ML IVPB IV SCH ×2 (08:00)
[2017-03-30] MEDS ORDERED: NS IV 1000 ML 1,000 ML IV ONE (08:00)
[2017-03-30] MEDS ORDERED: CLOPIDOGREL 75 MG (PLAVIX) TABLET PO SCH (09:00)
[2017-03-30] MEDS ORDERED: ENOXAPARIN 40 MG/0.4 ML (LOVENOX) SYR SC SCH (09:00)
--- NOTE | 2017-03-30 09:36 | Progress Note-Cardiology ---
Cardiology SOAP Progress Note Subjective: Opens eyes to verbal stimuli. Unable to obtain any information. No visible signs of distress Objective: I&O/Vital Signs Vital Sign - Last 12Hours 03/29/17 03/29/17 03/30/17 03/30/17 22:21 23:44 00:50 01:00 Temp 97.5 98.0 99.2 Pulse 72 70 87 80 Resp 11 13 16 B/P (MAP) 104/51 104/46 109/57 Pulse Ox 97 93 92 O2 Delivery Room Air Room Air Room Air 03/30/17 03/30/17 03/30/17 03/30/17 01:44 02:45 03:46 04:50 Temp 99.0 98.0 99.1 98.2 Pulse 68 84 82 88 Resp 14 14 14 18 B/P (MAP) 114/59 117/51 117/55 129/64 Pulse Ox 93 90 92 95 O2 Delivery Room Air Room Air Room Air Room Air 03/30/17 03/30/17 03/30/17 03/30/17 05:49 06:50 07:45 08:45 Temp 98.1 98.2 98.4 98.4 Pulse 87 90 91 81 Resp 16 16 16 16 B/P (MAP) 117/57 135/60 138/60 123/59 Pulse Ox 90 90 91 90 O2 Delivery Room Air Room Air Room Air Room Air 03/30/17 03/30/17 09:49 09:53 Temp 98.7 Pulse 91 Resp 16 B/P (MAP) 123/59 Pulse Ox 90 87 O2 Delivery Room Air Room Air Weight (Pounds): 149 Weight (Ounces): 1.0 Weight (Calculated Kilograms): 67.320341 Constitutional: other (Unresponsive, cachetic, in no obvious distress) Respiratory: No accessory muscle use, other (fair to good bilat air entry; diminished at the bases) Cardiovascular: regular rate-rhythm, S1 and S2, systolic murmur (faint ALLI at cardiac base) Gastrointestional: soft, No guarding, No rebound, audible bowel sounds Extremities: No clubbing, No cyanosis, No significant edema Neurologic/Psychiatric: other (unresponsive and unable to cooperate with a neuro exam) Skin: No rash on exposed areas, No ulcerations on exposed areas Results/Procedures: Labs Laboratory Tests 03/29/17 11:33: Troponin I 0.89*H 03/29/17 16:09: Troponin I 0.87*H, Lactic Acid Level 2.26*H 03/29/17 17:44: Glucometer 115H 03/29/17 18:30: Lactic Acid Level 2.42*H 03/30/17 00:52: Glucometer 171H 03/30/17 06:52: White Blood Count 3.8L, Red Blood Count 3.02L, Hemoglobin 8.2L, Hematocrit 27L, Mean Corpuscular Volume 90, Mean Corpuscular Hemoglobin 27, Mean Corpuscular Hemoglobin Concent 30L, Red Cell Distribution Width 23.0H, Platelet Count 69L, Mean Platelet Volume 13.2H, Neutrophils (%) (Auto) 72, Lymphocytes (%) (Auto) 19 , Monocytes (%) (Auto) 6, Eosinophils (%) (Auto) 3, Basophils (%) (Auto) 0, Neutrophils # (Auto) 2.7, Lymphocytes # (Auto) 0.7L, Monocytes # (Auto) 0.2, Eosinophils # (Auto) 0.1, Basophils # (Auto) 0.0, Sodium Level 149H, Potassium Level 3.6, Chloride Level 118H, Carbon Dioxide Level 22, Anion Gap 9, Blood Urea Nitrogen 39H, Creatinine 1.05, Estimat Glomerular Filtration Rate > 60, BUN /Creatinine Ratio 37, Glucose Level 168H, Lactic Acid Level 2.15*H, Calcium Level 7.7L, Total Bilirubin 0.8, Aspartate Amino Transf (AST/SGOT) 148H, Alanine Aminotransferase (ALT/SGPT) 127H, Alkaline Phosphatase 462H, Total Protein 5.6L, Albumin 2.7L 03/30/17 08:55: Lactic Acid Level 1.90 Microbiology 03/29/17 Gram Stain - Final, Resulted 03/29/17 Sputum Culture - Preliminary, Resulted Gram Negative Nikita 03/29/17 Urine Culture - Preliminary, Resulted Gram Negative Nikita A/P: Assessment: Septicemia due to UTI and/or pneumonia Pneumonia, L-sided UTI Elevated troponin: due to sepsis or due to small NSTEMI Unresponsive status Cachexia Feeding tube in place Renal insufficiency, probably acute, probably due to dehydration (pre-renal azotemia) Anemia with thrombocytopenia likely d/t sepsis Elevated liver enzymes of undetermined etiology (not suitable candidate for statin tx) Plan: Treat for possible NSTEMI with bb, statin, aspirin, clopidogrel Not suitable for invasive cardiac management (risk of invasive management appears greater than benefit) Anemia with thrombocytopenia (worsening) likely d/t sepsis - therefore not a suitable candidate for anti-platelet tx - will stop Plavix and Lovenox Elevated liver enzymes - management per medical services - stop statin for now Monitor lab Physician Assessment Physician Assessment Unresponsive Lungs: fair bilat air entry Cor: reg Ext: no c/c/e A&R * As documented in our note above that I updated (italics) and as noted below * 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
[2017-03-30] MEDS: meTOprolol TARTRATE 25 MG (LOPRESSOR) TABLET PEG SCH ×2 (10:02→20:37)
[2017-03-30] MEDS: ASPIRIN 81 MG CHEW (CHILDREN'S ASA) PO SCH (10:02)
[2017-03-30] MEDS: CEFEPIME 2 GM/NS 50 ML IVPB IV SCH ×2 (10:04)
[2017-03-30] MEDS: lisINopril 5 MG (PRINIVIL) TABLET PEG SCH (10:06)
--- NOTE | 2017-03-30 13:44 | Progress Note (SOAP) ---
Subjective Subjective/Events-last exam Afebrile, no acute events. Remains non-verbal. Unclear baseline and no family here this morning at time of my exam. Review of Systems Date Seen by Provider: Mar 30, 2017 Time Seen by Provider: 10:15 Objective Exam Last Set of Vital Signs Vital Signs Date Time Temp Pulse Resp B/P (MAP) Pulse Ox O2 Delivery O2 Flow Rate FiO2 03/30/17 11:49 98.1 72 16 126/57 95 03/30/17 09:53 Room Air Capillary Refill : Less Than 3 Seconds I&O Intake and Output 03/31/17 00:00 Intake Total 1000 ml Output Total 400 ml Balance 600 ml Intake Oral 0 ml IV Total 1000 ml Output Urine Total 400 ml General: Other (appears to be sleeping, opens eyes to name) HEENT: Other (pupils constricted, blinks in response to light) Lungs: Other (ronchi, increased work of breathing) Heart: Regular Rate, No Murmurs Abdomen: Normal Bowel Sounds, No Tenderness, Other (PEG tube in place with dressing around) Extremities: No Edema Neuro: Other (opens eyes to noise, blinks when light shined in eyes, no verbal response, does not follow commands) Results/Procedures Lab Laboratory Tests 03/29/17 16:09: Lactic Acid Level 2.26*H, Troponin I 0.87*H 03/29/17 17:44: Glucometer 115H 03/29/17 18:30: Lactic Acid Level 2.42*H 03/30/17 00:52: Glucometer 171H 03/30/17 06:52: White Blood Count 3.8L, Red Blood Count 3.02L, Hemoglobin 8.2L, Hematocrit 27L, Mean Corpuscular Volume 90, Mean Corpuscular Hemoglobin 27, Mean Corpuscular Hemoglobin Concent 30L, Red Cell Distribution Width 23.0H, Platelet Count 69L, Mean Platelet Volume 13.2H, Neutrophils (%) (Auto) 72, Lymphocytes (%) (Auto) 19 , Monocytes (%) (Auto) 6, Eosinophils (%) (Auto) 3, Basophils (%) (Auto) 0, Neutrophils # (Auto) 2.7, Lymphocytes # (Auto) 0.7L, Monocytes # (Auto) 0.2, Eosinophils # (Auto) 0.1, Basophils # (Auto) 0.0, Sodium Level 149H, Potassium Level 3.6, Chloride Level 118H, Carbon Dioxide Level 22, Anion Gap 9, Blood Urea Nitrogen 39H, Creatinine 1.05, Estimat Glomerular Filtration Rate > 60, BUN /Creatinine Ratio 37, Glucose Level 168H, Lactic Acid Level 2.15*H, Calcium Level 7.7L, Total Bilirubin 0.8, Aspartate Amino Transf (AST/SGOT) 148H, Alanine Aminotransferase (ALT/SGPT) 127H, Alkaline Phosphatase 462H, Total Protein 5.6L, Albumin 2.7L 03/30/17 08:55: Lactic Acid Level 1.90 03/30/17 11:34: Glucometer 146H Microbiology 03/29/17 Gram Stain - Final, Resulted 03/29/17 Sputum Culture - Preliminary, Resulted Gram Negative Nikita 03/29/17 Urine Culture - Preliminary, Resulted Proteus Mirabilis Radiology NAME: KIKE CASTELLANO [facility] REC#: [id number] PT STATUS: ADM IN : 1935 PHYSICIAN: MAC RODRIGUEZ MD ADMIT DATE: 03/29/17 Draft Date of Exam:03/29/17 CHEST 1 VIEW, AP/PA ONLY INDICATION: Congestion. COMPARISON: 02/13/2017. FINDINGS: Development of small left pleural effusion and left basilar pulmonary opacities. No pneumothorax. Cardiomegaly with changes of CABG. Right lung is clear. IMPRESSION: 1. Development of small left pleural effusion and left basilar opacities which could relate to pneumonia, aspiration or other inflammatory process depending on the clinical scenario. Dictated on workstation # [id number] Dict: 03/29/1711 Trans: 03/29/17 0618 [facility] [id number] Interpreted by: VAISHALI BUTT MD Electronically signed by: Assessment/Plan Assessment/Plan Admission Dx 1. Sepsis 2. Pneumonia 3. Elevated troponin 4. Possible urinary tract infection but indwelling catheter Plan 1. Sepsis secondary to pneumonia/UTI- lactic acid elevation but no leukocytosis , tachycardia or tachypnea -Patient is noted to have lactic acid on admission of 2.93 and received 2 L fluid bous in ED 03/29 Dr. El spoke with his second son at length today regarding DNR status. The son reports that this has been discussed multiple times over the past few months and they do not want to make him DNR at the patient's request. Currently the patient is not able to speak and son does not want to change his decision. 03/30 lactic acid remains slightly elevated, 1 liter NS bolus ordered and repeat improved, cultures with proteus sensitive to cefepime, will d/c vancomycin 2. Pneumonia -Patient is taking vancomycin as well as cefepime 03/30 sputum culture and urine culture with proteus, d/c vancomycin, continue cefepime 3. Elevated troponin -Cardiology consultation, not a candidate for aggressive intervention and troponin is trending down- initially started statin, beta chris, clopidogrel, but holding statin d/t LFTs and clopidogrel due to pancytopenia 4. UTI with indwelling barger- culture with proteus -Continue cefepime, d/c vancomycin 5. Elevated LFTs -Unclear if chronic, patient has known colon cancer that family reports treatment is not being pursued because he was told he would not survive treatment -Monitor, hold statin 6. Pancytopenia- unclear etiology, possibly due to sepsis versus liver disease or malignancy, holding enoxaparin and clopidogrel 7. Hypernatremia- likely dehydration given no oral intake, may need more free water with tube feeds. For now will give D5W at 90 ml/hr to correct and then reassess tube feeding regimen 8. PEG tube in place- unclear which diagnosis led to the placement of this, appears from [facility] records was placed 03/02/17 -Home tube feedings continued, may need more water- will re-evaluate after normalizing sodium with IVF 9. Hypothyroidism- resume home levothyroxine 10. Depression- apparent based on med list, resume home citalopram DVT ppx- enoxaparin Disp- Unclear baseline functional status, but review of records from [facility] in [place] notes multiple comorbidities including dementa, colon cancer, history of CVA and CAD. His current status is guarded and he is unable to speak to express his wishes. His family reports his desire is to be full code although he was not pursuing treatment for his colon cancer. Diagnosis/Problems: Clinical Quality Measures DVT/VTE Risk/Contraindication: Risk Factor Score Per Nursin RFS Level Per Nursing on Admit: 4+=Very High CHANTEL CORDOVA MD Mar 30, 2017 1:43 pm
[2017-03-30 14:55] LABS: ANION GAP 7 MMOL/L (5-14); BLOOD UREA NITROGEN 39 MG/DL (7-18); BUN/CREATININE RATIO 41; CALCIUM 7.5 MG/DL (8.5-10.1); CARBON DIOXIDE 24 MMOL/L (21-32); CHLORIDE 121 MMOL/L (98-107); CREATININE SERUM 0.95 MG/DL (0.60-1.30); GFR ESTIMATED > 60; GLUCOSE 158 MG/DL (70-105); POTASSIUM 3.9 MMOL/L (3.6-5.0); SODIUM 152 MMOL/L (135-145)
[2017-03-30] MEDS: D5W 1000 ML IV SOLUTION 1,000 ML IV SCH (15:17)
[2017-03-30 18:41] LABS: ANION GAP 5 MMOL/L (5-14); BLOOD UREA NITROGEN 38 MG/DL (7-18); BUN/CREATININE RATIO 39; CALCIUM 7.5 MG/DL (8.5-10.1); CARBON DIOXIDE 26 MMOL/L (21-32); CHLORIDE 119 MMOL/L (98-107); CREATININE SERUM 0.98 MG/DL (0.60-1.30); GFR ESTIMATED > 60; GLUCOSE 153 MG/DL (70-105); POTASSIUM 3.6 MMOL/L (3.6-5.0); SODIUM 150 MMOL/L (135-145)
[2017-03-30 22:59] LABS: ANION GAP 7 MMOL/L (5-14); BLOOD UREA NITROGEN 38 MG/DL (7-18); BUN/CREATININE RATIO 38; CALCIUM 7.4 MG/DL (8.5-10.1); CARBON DIOXIDE 23 MMOL/L (21-32); GFR ESTIMATED > 60; GLUCOSE 173 MG/DL (70-105); POTASSIUM 3.5 MMOL/L (3.6-5.0); SODIUM 147 MMOL/L (135-145)
[2017-03-30 23:06] LABS: CHLORIDE 117 MMOL/L (98-107)
[2017-03-31 00:40] VITALS: BP 133/72
[2017-03-31] MEDS: D5W 1000 ML IV SOLUTION 1,000 ML IV SCH (03:08)
[2017-03-31 04:25] VITALS: BP 145/78
[2017-03-31 06:28] LABS: BASOPHILS % (AUTO) 1 % (0-10); EOSINOPHILS # (AUTO) 0.2 10^3/uL (0.0-0.3); EOSINOPHILS % (AUTO) 5 % (0-10); LYMPHOCYTES # (AUTO) 0.6 X 10^3 (1.0-4.0); LYMPHOCYTES % (AUTO) 18 % (12-44); MEAN CORPUSCULAR HEMOGLOBIN 27 PG (25-34); MEAN CORPUSCULAR HGB CONC 30 G/DL (32-36); MEAN CORPUSCULAR VOLUME 91 FL (80-99); MEAN PLATELET VOLUME 13.3 FL (7.4-10.4); MONOCYTES # (AUTO) 0.2 X 10^3 (0.0-1.0); MONOCYTES % (AUTO) 6 % (0-12); NEUTROPHILS # (AUTO) 2.5 X 10^3 (1.8-7.8); NEUTROPHILS % (AUTO) 71 % (42-75); PLATELET COUNT 70 10^3/uL (130-400); RED CELL DISTRIBUTION WIDTH 22.9 % (10.0-14.5); WHITE BLOOD COUNT 3.5 10^3/uL (4.3-11.0)
[2017-03-31] MEDS ORDERED: LEVOTHYROXINE 150 MCG (LEVOTHROID) TAB PEG SCH (06:30)
[2017-03-31] MEDS ORDERED: LEVOTHYROXINE 25 MCG (LEVOTHROID) TAB PEG SCH (06:30)
[2017-03-31 06:49] LABS: ALANINE AMINOTRANSFERASE 146 U/L (0-55); ALBUMIN 2.8 GM/DL (3.2-4.5); ANION GAP 8 MMOL/L (5-14); ASPARTATE AMINO TRANSFERASE 166 U/L (5-34); BILIRUBIN,TOTAL 0.6 MG/DL (0.1-1.0); BLOOD UREA NITROGEN 36 MG/DL (7-18); BUN/CREATININE RATIO 37; CALCIUM 7.8 MG/DL (8.5-10.1); CARBON DIOXIDE 22 MMOL/L (21-32); CHLORIDE 116 MMOL/L (98-107); CREATININE SERUM 0.98 MG/DL (0.60-1.30); GFR ESTIMATED > 60; GLUCOSE 178 MG/DL (70-105); MAGNESIUM 1.9 MG/DL (1.8-2.4); POTASSIUM 3.6 MMOL/L (3.6-5.0); SODIUM 146 MMOL/L (135-145); TOTAL PROTEIN 5.5 GM/DL (6.4-8.2)
[2017-03-31] MEDS ORDERED: TROUGH ORDER-PHARMACY XX NR (07:00)
--- NOTE | 2017-03-31 07:29 | Diagnostic Imaging Report ---
INDICATION: Congestion. COMPARISON: 03/29/2017 FINDINGS: Single frontal radiographic view of the chest was obtained and demonstrates interval development of moderate pulmonary vascular congestion. Heart size is mildly prominent. There has also been interval development of perihilar opacities and diffuse prominence of the interstitium. There is obscuration of the left hemidiaphragm secondary to probable left basilar effusion and associated airspace disease. Small right effusion cannot be excluded. There is no pneumothorax. Sternotomy wires and aortic atherosclerosis are noted. Bony structures show no gross acute abnormalities. IMPRESSION: 1. Interval development of moderate pulmonary vascular congestion and probable interstitial pulmonary edema. 2. Patchy perihilar opacities, which may be on the basis of early alveolar edema. Continued followup is recommended. 3. Left basilar airspace disease suspicious for effusion with atelectasis. Underlying infiltrate is not excluded. Dictated by: Dictated on workstation # [id number]
[2017-03-31 08:00] VITALS: BP 113/57
[2017-03-31] MEDS: meTOprolol TARTRATE 25 MG (LOPRESSOR) TABLET PEG SCH (08:02)
[2017-03-31] MEDS: ASPIRIN 81 MG CHEW (CHILDREN'S ASA) PO SCH (08:02)
[2017-03-31] MEDS: lisINopril 5 MG (PRINIVIL) TABLET PEG SCH (08:02)
[2017-03-31] MEDS: CEFEPIME 2 GM/NS 50 ML IVPB IV SCH ×2 (08:02)
[2017-03-31] MEDS ORDERED: FUROSEMIDE 40 MG (LASIX) TAB PEG SCH (09:00)
--- NOTE | 2017-03-31 10:12 | Progress Note-Cardiology ---
Cardiology SOAP Progress Note Subjective: Opens eyes to verbal stimuli. Unable to provide any information Objective: I&O/Vital Signs Vital Sign - Last 12Hours 03/31/17 03/31/17 03/31/17 03/31/17 04:25 06:19 07:00 08:00 Temp 99.0 Pulse 80 72 Resp 16 B/P (MAP) 145/78 Pulse Ox 95 97 O2 Delivery Nasal Cannula Nasal Cannula Nasal Cannula O2 Flow Rate 2.50 2.50 2.50 03/31/17 03/31/17 03/31/17 08:00 12:00 14:31 Temp 97.2 96.5 Pulse 73 74 Resp 12 21 B/P (MAP) 113/57 102/54 Pulse Ox 97 97 O2 Delivery Nasal Cannula Nasal Cannula O2 Flow Rate 2.50 2.50 Intake and Output 04/01/17 00:00 Output Total 700 ml Balance -700 ml Weight (Pounds): 149 Weight (Ounces): 1.0 Weight (Calculated Kilograms): 67.782761 Constitutional: other (Unresponsive, cachetic, in no obvious distress) Respiratory: No accessory muscle use, crackles (lower lobes), other (fair bilat air entry; diminished at the bases) Cardiovascular: regular rate-rhythm, S1 and S2, systolic murmur (faint ALLI at cardiac base) Gastrointestional: soft, No guarding, No rebound, audible bowel sounds Extremities: No clubbing, No cyanosis, significant edema (mod bilat pedal edema ) Neurologic/Psychiatric: other (unresponsive and unable to cooperate with a neuro exam) Skin: No rash on exposed areas, No ulcerations on exposed areas Results/Procedures: Labs Laboratory Tests 03/30/17 18:11: Glucometer 149H 03/30/17 18:15: Sodium Level 150H, Potassium Level 3.6, Chloride Level 119H, Carbon Dioxide Level 26, Anion Gap 5, Blood Urea Nitrogen 38H, Creatinine 0.98, Estimat Glomerular Filtration Rate > 60, BUN/Creatinine Ratio 39, Glucose Level 153H, Calcium Level 7.5L 03/30/17 22:10: Sodium Level 147H, Potassium Level 3.5L, Chloride Level 117H, Carbon Dioxide Level 23, Anion Gap 7, Blood Urea Nitrogen 38H, Creatinine 1.00, Estimat Glomerular Filtration Rate > 60, BUN/Creatinine Ratio 38, Glucose Level 173H, Calcium Level 7.4L 03/31/17 00:05: Glucometer 187H 03/31/17 06:00: White Blood Count 3.5L, Red Blood Count 2.90L, Hemoglobin 7.9L, Hematocrit 27L, Mean Corpuscular Volume 91, Mean Corpuscular Hemoglobin 27, Mean Corpuscular Hemoglobin Concent 30L, Red Cell Distribution Width 22.9H, Platelet Count 70L, Mean Platelet Volume 13.3H, Neutrophils (%) (Auto) 71, Lymphocytes (%) (Auto) 18 , Monocytes (%) (Auto) 6, Eosinophils (%) (Auto) 5, Basophils (%) (Auto) 1, Neutrophils # (Auto) 2.5, Lymphocytes # (Auto) 0.6L, Monocytes # (Auto) 0.2, Eosinophils # (Auto) 0.2, Basophils # (Auto) 0.0, Sodium Level 146H, Potassium Level 3.6, Chloride Level 116H, Carbon Dioxide Level 22, Anion Gap 8, Blood Urea Nitrogen 36H, Creatinine 0.98, Estimat Glomerular Filtration Rate > 60, BUN /Creatinine Ratio 37, Glucose Level 178H, Calcium Level 7.8L, Magnesium Level 1.9, Total Bilirubin 0.6, Aspartate Amino Transf (AST/SGOT) 166H, Alanine Aminotransferase (ALT/SGPT) 146H, Alkaline Phosphatase 507H, Total Protein 5.5L , Albumin 2.8L, Vancomycin Level Trough 16.6 Microbiology 03/29/17 Blood Culture - Preliminary, Resulted No growth 03/29/17 Gram Stain - Final, Complete 03/29/17 Sputum Culture - Final, Complete Morganella Morganii Proteus Mirabilis 03/29/17 Urine Culture - Final, Complete Proteus Mirabilis Procedures NAME: KIKE CASTELLANO [facility] REC#: [id number] PT STATUS: ADM IN : 1935 PHYSICIAN: CHANTEL CORDOVA MD ADMIT DATE: 03/29/17 Draft Date of Exam:03/31/17 CHEST 1 VIEW, AP/PA ONLY INDICATION: Congestion. COMPARISON: 03/29/2017 FINDINGS: Single frontal radiographic view of the chest was obtained and demonstrates interval development of moderate pulmonary vascular congestion. Heart size is mildly prominent. There has also been interval development of perihilar opacities and diffuse prominence of the interstitium. There is obscuration of the left hemidiaphragm secondary to probable left basilar effusion and associated airspace disease. Small right effusion cannot be excluded. There is no pneumothorax. Sternotomy wires and aortic atherosclerosis are noted. Bony structures show no gross acute abnormalities. IMPRESSION: 1. Interval development of moderate pulmonary vascular congestion and probable interstitial pulmonary edema. 2. Opacities, which may be on the basis of early alveolar edema. Continued followup is recommended. 3. Left basilar airspace disease suspicious for effusion with atelectasis. Underlying infiltrate is not excluded. Dictated on workstation # [id number] Dict: 03/31/1707 Trans: 03/31/17 0728 [facility] [id number] Interpreted by: NANCY CARLISLE MD Electronically signed by: A/P: Assessment: Septicemia due to UTI and/or pneumonia Pneumonia, L-sided UTI Elevated troponin: due to sepsis or due to small NSTEMI Unresponsive status Cachexia Feeding tube in place Renal insufficiency, probably acute, probably due to dehydration (pre-renal azotemia) Anemia with thrombocytopenia likely d/t sepsis Elevated liver enzymes of undetermined etiology (not suitable candidate for statin tx) Plan: Treat for possible NSTEMI with bb and ASA Not suitable for invasive cardiac management (risk of invasive management appears greater than benefit) Anemia with thrombocytopenia (worsening) likely d/t sepsis - therefore not a suitable candidate for anti-platelet tx - will stop Plavix and Lovenox Elevated liver enzymes - management per medical services - stop statin for now Monitor lab Give additional IV Lasix d/t worsening CXR and LE edema TIFFANY HAN BAND LEADER Mar 31, 2017 10:12 DANTE CHAN MD FACP FAC CCDS Mar 31, 2017 15:21
[2017-03-31] MEDS ORDERED: FUROSEMIDE 40 MG/4 ML INJ (LASIX) IVP NR (10:15)
[2017-03-31] MEDS ORDERED: LISI-556 PEG (11:56)
[2017-03-31] MEDS ORDERED: CEFD300C3 PEG (11:56)
[2017-03-31 12:00] VITALS: BP 102/54
--- NOTE | 2017-03-31 12:00 | Discharge Instructions ---
Discharge [facility] Discharge Medications New Medications: Cefdinir (Cefdinir) 300 Mg Capsule 300 MG PEG BID for 10 Days, #20 CAP 0 Refills Lisinopril (Lisinopril) 5 Mg Tablet 2.5 MG PEG DAILY@0900, #30 TAB 0 Refills Continued Medications: Aspirin (Aspirin) 81 Mg Tab.chew 81 MG PEG DAILY, TAB Citalopram Hydrobromide (Citalopram HBr) 20 Mg Tablet 20 MG PEG HS Cyanocobalamin (Vitamin B-12) (Vitamin B-12) 1,000 Mcg Tablet 1000 MCG PEG DAILY, TAB Fentanyl (Fentanyl Patch 50 MCG) 1 Each Patch.td72 50 MCG TD EVERY 72 HOURS Furosemide (Furosemide) 40 Mg Tablet 40 MG PEG DAILY, TAB Hydrocodone/Acetaminophen (Hydrocodon -Acetaminophen 5-325) 1 Each Tablet 1 TAB PEG Q6H PRN for PAIN-MODERATE Lactobacillus Rhamnosus GG (Culturelle) 1 Each Capsule 1 CAP PEG BID, CAP Lactose-Reduced Food/Fiber (Jevity 1.5 Denzel Liquid) 237 Ml Liquid 60 ML PO CONTINUOUS, EA Levothyroxine Sodium (Levothyroxine Sodium) 175 Mcg Tablet 175 MCG PEG DAILY Magnesium Hydroxide (Milk of Magnesia) 400 Mg/5 Ml Oral.susp 30 ML PEG DAILY PRN for CONSTIPATION-7TH LINE, ML Metoprolol Tartrate (Metoprolol Tartrate) 25 Mg Tablet 25 MG PEG BID, TAB Ondansetron (Ondansetron Odt) 4 Mg Tab.rapdis 4 MG PEG Q8H PRN for NAUSEA/VOMITING-1ST LINE Pediatric Multivit Comb No.81 (Poly--Brittni) 50 Ml Drops 2 ML PO DAILY, DROPS Polyethylene Glycol 3350 (Polyethylene Glycol 3350) 255 Gm Powder 17 GM PEG DAILY Ranitidine HCl (Ranitidine HCl) 150 Mg Tablet 150 MG PEG BID Sennosides/Docusate Sodium (Sennosides-Docusate Sodium Tab) 1 Each Tablet 1 TAB PO DAILY, TAB Discontinued Medications: Amlodipine Besylate (Amlodipine Besylate) 5 Mg Tablet 5 MG PEG DAILY Rosuvastatin Calcium (Rosuvastatin Calcium) 40 Mg Tablet 40 MG PEG HS Patient Instructions Goal/Follow Up Appt: Naya Castaneda will see you in the long term on . Return to The Hospital For: Fever, increasing oxygen requirements Activity & Diet Discharge Diet: Tube Feeding Activity as Tolerated: Yes Orders-Post D/C & Referrals Pneu Vac Indicated: Yes Copy Copies To 1: JOSELIN Villegas BETHANY N MD Mar 31, 2017 12:00 pm
--- NOTE | 2017-03-31 17:27 | Discharge Summary ---
Diagnosis/Chief Complaint Date of Admission Mar 29, 2017 at 5:10 am Date of Discharge Mar 31, 2017 at 2:00 pm Admission Diagnosis Admission Diagnosis 1. Sepsis 2. Pneumonia 3. Elevated troponin 4. Possible urinary tract infection but indwelling catheter Discharge Diagnosis 1. Sepsis secondary to pneumonia/UTI- lactic acid elevation but no leukocytosis , tachycardia or tachypnea -Patient is noted to have lactic acid on admission of 2.93 and received 2 L fluid bous in ED 03/29 Dr. El spoke with his second son at length today regarding DNR status. The son reports that this has been discussed multiple times over the past few months and they do not want to make him DNR at the patient's request. Currently the patient is not able to speak and son does not want to change his decision. 03/30 lactic acid remains slightly elevated, 1 liter NS bolus ordered and repeat improved, cultures with proteus sensitive to cefepime, will d/c vancomycin 03/31 lactic acid normalized, afebrile- cultures with sensitivity available- see below 2. Pneumonia -Patient is taking vancomycin as well as cefepime 03/30 sputum culture and urine culture with proteus, d/c vancomycin, continue cefepime Sputum culture with proteus and morganella both sensitive to ceftriaxone, discharged with antibiotics to complete course of cefdinir, confirmed with family he was on supplemental oxygen prior to admission, continued on d/c. 3. Elevated troponin -Cardiology consultation, not a candidate for aggressive intervention and troponin is trending down- initially started statin, beta chris, clopidogrel, but holding statin d/t LFTs and clopidogrel due to pancytopenia 4. UTI with indwelling barger- culture with proteus -Continue cefepime, d/c vancomycin Discharged on cefdinir 5. Elevated LFTs -Unclear if chronic, patient has known colon cancer that family reports treatment is not being pursued because he was told he would not survive treatment -Monitor, hold statin 6. Pancytopenia- unclear etiology, possibly due to sepsis versus liver disease or malignancy, holding enoxaparin and clopidogrel 7. Hypernatremia- likely dehydration given no oral intake, may need more free water with tube feeds. For now will give D5W at 90 ml/hr to correct and then reassess tube feeding regimen Improved at d/c after D5 administration 8. PEG tube in place- unclear which diagnosis led to the placement of this, appears from [facility] records was placed 03/02/17 -Home tube feedings continued 9. Hypothyroidism- resumed home levothyroxine 10. Depression- apparent based on med list, resume home citalopram Disp- Unclear baseline functional status, but review of records from [facility] in [place] notes multiple comorbidities including dementa, colon cancer, history of CVA and CAD. His current status even at discharge is guarded given his 2 recent episodes of aspiration pneumonia after having PEG tube for less than a month, with worsening pancytopenia of unknown origin, and he is unable to speak to express his wishes. His family reported his desire is to be full code although he was not pursuing treatment for his colon cancer. Chief Complaint/HPI Chief Complaint/HPI 81-year-old male presents by EMS to [facility] emergency department from the [facility] after resident was found to be with requiring respiratory suctioning and a lot of coughing. Patient was at the intensive care unit at [facility] in [facility] and he had been intubated. He does have colon cancer but the extent is not known. Currently he is with pneumonia as well as urinary tract infection. His blood work is suggestive for sepsis. He currently is not responding other than perhaps moving head when spoken to loudly. He does have an indwelling Barger catheter as well as a feeding tube. He is not a DNR and apparently the family wants everything done for him, as according to the patient. The second son was spoken to and he reports there is no power of deputy attorney general. Discharge Summary-Simple/Stand Consultations DANTE CHAN MD FACP FACC CCDS Discharge Physical Examination Allergies: Coded Allergies: No Known Drug Allergies (Unverified , 02/13/17) Vitals & I&Os Vital Sign - Last 12Hours Date Time Temp Pulse Resp B/P (MAP) Pulse Ox O2 Delivery O2 Flow Rate FiO2 03/31/17 14:31 03/31/17 12:00 96.5 74 21 97 Nasal Cannula 2.50 Intake and Output 04/01/17 00:00 Output Total 700 ml Balance -700 ml General Appearance: Other (opens eyes to noise) Respiratory: Other (ronchi) Cardiovascular: Regular Rate, No Murmurs Abdominal: Normal Bowel Sounds, Soft, Other (PEG tube in place) Extremities: Other (edema in both feet) Neuro: Other (opens eyes to noise but no other meaningful interaction) Hospital Course See final discharge diagnosis. Labs Laboratory Tests Test 03/30/17 00:52 03/30/17 06:52 03/30/17 08:55 03/30/17 11:34 Range/Units Glucometer 171 H 146 H 70-110 MG/DL White Blood Count 3.8 L 4.3-11.0 10^3/uL Red Blood Count 3.02 L 4.35-5.85 10^6/uL Hemoglobin 8.2 L 13.3-17.7 G/DL Hematocrit 27 L 40-54 % Mean Corpuscular Volume 90 80-99 FL Mean Corpuscular Hemoglobin 27 25-34 PG Mean Corpuscular Hemoglobin Concent 30 L 32-36 G/DL Red Cell Distribution Width 23.0 H 10.0-14.5 % Platelet Count 69 L 130-400 10^3/uL Mean Platelet Volume 13.2 H 7.4-10.4 FL Neutrophils (%) (Auto) 72 42-75 % Lymphocytes (%) (Auto) 19 12-44 % Monocytes (%) (Auto) 6 0-12 % Eosinophils (%) (Auto) 3 0-10 % Basophils (%) (Auto) 0 0-10 % Neutrophils # (Auto) 2.7 1.8-7.8 X 10^3 Lymphocytes # (Auto) 0.7 L 1.0-4.0 X 10^3 Monocytes # (Auto) 0.2 0.0-1.0 X 10^3 Eosinophils # (Auto) 0.1 0.0-0.3 10^3/uL Basophils # (Auto) 0.0 0.0-0.1 10^3/uL Sodium Level 149 H 135-145 MMOL/L Potassium Level 3.6 3.6-5.0 MMOL/L Chloride Level 118 H 98-107 MMOL/L Carbon Dioxide Level 22 21-32 MMOL/L Anion Gap 9 5-14 MMOL/L Blood Urea Nitrogen 39 H 7-18 MG/DL Creatinine 1.05 0.60-1.30 MG/DL Estimat Glomerular Filtration Rate > 60 BUN/Creatinine Ratio 37 Glucose Level 168 H 70-105 MG/DL Lactic Acid Level 2.15 *H 1.90 0.50-2.00 MMOL/L Calcium Level 7.7 L 8.5-10.1 MG/DL Total Bilirubin 0.8 0.1-1.0 MG/DL Aspartate Amino Transf (AST/SGOT) 148 H 5-34 U/L Alanine Aminotransferase (ALT/SGPT) 127 H 0-55 U/L Alkaline Phosphatase 462 H 40-136 U/L Total Protein 5.6 L 6.4-8.2 GM/DL Albumin 2.7 L 3.2-4.5 GM/DL Test 03/30/17 14:20 03/30/17 18:11 03/30/17 18:15 03/30/17 22:10 Range/Units Sodium Level 152 H 150 H 147 H 135-145 MMOL/L Potassium Level 3.9 3.6 3.5 L 3.6-5.0 MMOL/L Chloride Level 121 H 119 H 117 H 98-107 MMOL/L Carbon Dioxide Level 24 26 23 21-32 MMOL/L Anion Gap 7 5 7 5-14 MMOL/L Blood Urea Nitrogen 39 H 38 H 38 H 7-18 MG/DL Creatinine 0.95 0.98 1.00 0.60-1.30 MG/DL Estimat Glomerular Filtration Rate > 60 > 60 > 60 BUN/Creatinine Ratio 41 39 38 Glucose Level 158 H 153 H 173 H 70-105 MG/DL Calcium Level 7.5 L 7.5 L 7.4 L 8.5-10.1 MG/DL Glucometer 149 H 70-110 MG/DL Test 03/31/17 00:05 03/31/17 05:32 03/31/17 06:00 03/31/17 12:17 Range/Units Glucometer 187 H 200 H 194 H 70-110 MG/DL White Blood Count 3.5 L 4.3-11.0 10^3/uL Red Blood Count 2.90 L 4.35-5.85 10^6/uL Hemoglobin 7.9 L 13.3-17.7 G/DL Hematocrit 27 L 40-54 % Mean Corpuscular Volume 91 80-99 FL Mean Corpuscular Hemoglobin 27 25-34 PG Mean Corpuscular Hemoglobin Concent 30 L 32-36 G/DL Red Cell Distribution Width 22.9 H 10.0-14.5 % Platelet Count 70 L 130-400 10^3/uL Mean Platelet Volume 13.3 H 7.4-10.4 FL Neutrophils (%) (Auto) 71 42-75 % Lymphocytes (%) (Auto) 18 12-44 % Monocytes (%) (Auto) 6 0-12 % Eosinophils (%) (Auto) 5 0-10 % Basophils (%) (Auto) 1 0-10 % Neutrophils # (Auto) 2.5 1.8-7.8 X 10^3 Lymphocytes # (Auto) 0.6 L 1.0-4.0 X 10^3 Monocytes # (Auto) 0.2 0.0-1.0 X 10^3 Eosinophils # (Auto) 0.2 0.0-0.3 10^3/uL Basophils # (Auto) 0.0 0.0-0.1 10^3/uL Sodium Level 146 H 135-145 MMOL/L Potassium Level 3.6 3.6-5.0 MMOL/L Chloride Level 116 H 98-107 MMOL/L Carbon Dioxide Level 22 21-32 MMOL/L Anion Gap 8 5-14 MMOL/L Blood Urea Nitrogen 36 H 7-18 MG/DL Creatinine 0.98 0.60-1.30 MG/DL Estimat Glomerular Filtration Rate > 60 BUN/Creatinine Ratio 37 Glucose Level 178 H 70-105 MG/DL Calcium Level 7.8 L 8.5-10.1 MG/DL Magnesium Level 1.9 1.8-2.4 MG/DL Total Bilirubin 0.6 0.1-1.0 MG/DL Aspartate Amino Transf (AST/SGOT) 166 H 5-34 U/L Alanine Aminotransferase (ALT/SGPT) 146 H 0-55 U/L Alkaline Phosphatase 507 H 40-136 U/L Total Protein 5.5 L 6.4-8.2 GM/DL Albumin 2.8 L 3.2-4.5 GM/DL Vancomycin Level Trough 16.6 10.0-20.0 UG/ML Radiology Reviewed NAME: KIKE CASTELLANO [facility] REC#: [id number] PT STATUS: ADM IN : 1935 PHYSICIAN: MAC RODRIGUEZ MD ADMIT DATE: 03/29/17 Draft Date of Exam:03/29/17 CHEST 1 VIEW, AP/PA ONLY INDICATION: Congestion. COMPARISON: 02/13/2017. FINDINGS: Development of small left pleural effusion and left basilar pulmonary opacities. No pneumothorax. Cardiomegaly with changes of CABG. Right lung is clear. IMPRESSION: 1. Development of small left pleural effusion and left basilar opacities which could relate to pneumonia, aspiration or other inflammatory process depending on the clinical scenario. Dictated on workstation # [id number] Dict: 03/29/17610 Trans: 03/29/17 0618 NOA [id number] Interpreted by: VAISHALI BUTT MD Electronically signed by: Discharge Instructions to patient/family Please see electronic discharge instructions given to patient. Discharge Medications Reviewed and agree with Discharge Medication list on patient's Discharge Instruction sheet Clinical Quality Measures DVT/VTE Risk/Contraindication: Risk Factor Score Per Nursin RFS Level Per Nursing on Admit: 4+=Very High Copy Copies To 1: JOSELIN Villegas BETHANY N MD Mar 31, 2017 17:27
--- NOTE | 2017-04-02 11:50 | Physician Query Clarification ---
PQ-Link Infection to Dev/Proc Admission/Discharge Admission Date: Mar 29, 2017 at 05:10 Discharge Date: Mar 31, 2017 at 14:00 The medical record reflects the following clinical scenario: History/Risk Factors: Pneumonia, UTI. indwelling barger Clinical Findings: Lactic Acid 2.93, WBC's 3.8, sputum/urine grew proteus Treatment: Cefepime, Vancomycin, 2 L fluid bolus Question: Can you specify if the Sepsis is due to/associated with the indwelling barger? Please document a response below. PHYSICIAN RESPONSE Specify if infection: Yes,due to/associated with device Explanation of clincal finding UTI is likely related to indwelling barger, but unclear if sepsis was from UTI or pneumonia given bacterial cultured from both sputum and urine. In responding to this query, please exercise your independent professional judgment. The purpose of this communication is to more accurately reflect the complexity of your patients condition. The fact that a question is asked does not imply that any particular answer is desired or expected. Thank you for your timely response to this clarification. Requestors name: Mathew THIS PHYSICIAN QUERY FORM IS A PERMANENT PART OF THE MEDICAL RECORD MATHEW MALDONADO Apr 02, 2017 11:50 CHANTEL CORDOVA MD Apr 02, 2017 20:50
== END 2017-03-31 14:00 | DRG 871 ==
LOC: EDUNIT# 03:35 → ER 03:36 → 4TH 05:10
PROVIDERS: ADMIT Family Medicine; ATTEND Family Medicine
DX: E03.9 Hypothyroidism, unspecified; E87.0 Hyperosmolality and hypernatremia; F32.9 Major depressive disorder, single episode, unspecified; R78.89 Finding of other specified substances, not normally found in blood; J15.6 Pneumonia due to other Gram-negative bacteria; D61.818 Other pancytopenia; T83.511A Infection and inflammatory reaction due to indwelling urethral catheter, initial encounter; A41.59 Other Gram-negative sepsis; R40.2130 Coma scale, eyes open, to sound, unspecified time; R79.89 Other specified abnormal findings of blood chemistry; E88.09 Other disorders of plasma-protein metabolism, not elsewhere classified; Z93.1 Gastrostomy status; Z95.1 Presence of aortocoronary bypass graft; L89.121 Pressure ulcer of left upper back, stage 1; C18.9 Malignant neoplasm of colon, unspecified; L89.111 Pressure ulcer of right upper back, stage 1; R64 Cachexia; N39.0 Urinary tract infection, site not specified; I25.10 Atherosclerotic heart disease of native coronary artery without angina pectoris; F03.90 Unspecified dementia, unspecified severity, without behavioral disturbance, psychotic disturbance, mood disturbance, and anxiety; L89.141 Pressure ulcer of left lower back, stage 1; E86.0 Dehydration; L89.131 Pressure ulcer of right lower back, stage 1
CPT/HCPCS: 36415; 71010; 80048; 80053; 80061; 80202; 81000; 82962; 83605; 83735; 84100; 84484; 85025; 85610; 85730; 87040; 87070; 87077; 87088; 87186; 87205; 93005; 94640; 94760; 96361; 96365; 96367; 96372; 96375